=== PATIENT | male | born 1970 | race Caucasian/White ===

== ENCOUNTER 2025-02-15 17:59 | Inpatient (IN) | payer OTHER, SELFPAY ==
[2025-02-15] VITALS (27 sets, daily range): BP systolic 138–221; BP diastolic 66–116; BMI 38.6; BMI 37.4
--- NOTE | 2025-02-15 14:19 | ED.GENMED ---
Addendum entered and electronically signed by Dior Moore MD 02/15/25 17:36:
discussed with cardiology who recommended holding off on the heparin as likely type 2 NE. heparin discontinued. nursing immediately notified.
Original Note:
History of Present Illness
General
Chief Complaint: Chest Pain
Time Seen by Provider: 02/15/25 14:06
History of Present Illness
History of Present Illness:
Patient is a 54-year-old male with history of hypertension presenting to the emergency department with chest pain. Patient states for the past few days he has been having gradual chest pain that occurs after walking long distance. He has chest
pain as well as shortness of breath. Occasionally the pain will be from his back into his chest. Sometimes the pain will go down his arms. Occasionally he will have a sensory change but he is unable to describe it in his arms. He states when he
sits the pain resolves. He does note that his blood pressure has been elevated. He is on amlodipine metoprolol and spironolactone.
Phy Exam
Physical Exam
Physical Exam:
GENERAL: in no acute distress
HEENT: normocephalic, extraocular movements intact, moist oral mucosa
NECK: normal inspection
RESPIRATORY: no respiratory distress, clear to auscultation bilaterally
CARDIOVASCULAR: regular rate and rhythm, slightly diminished right sided radial pulse
ABDOMEN/: soft, non-distended, non-tender to palpation, no rebound or guarding
EXTREMITIES: non-tender, no edema/swelling
NEUROLOGIC: awake and alert, moves all extremities
SKIN: warm
Scores
Heart Score for Chest Pain Patients
STEMI patient?: No
History: Highly Suspicious
ECG: Nonspecific Repolarization
Age: >45 - <65 years
Risk Factors: 1 or 2 Risk Factors
Troponin: >1 - <3 x Normal Limit
Heart Score for Chest Pain Patients: 6
Heart Score Risk: 20.3% MACE over next 6 weeks
Course
Orders/Labs/Results
Orders:
Orders
02/15/25 13:26
EKG [Electrocardiogram (*1)] Urgent
Reason for Study: Chest Pain
EKG- Treatment ONCE
02/15/25 14:19
CT Angio Chest/Abd W/Wo Iv Contrast [CT Chest/abd Angio W/wo Iv Con] Urgent
Comment:
Reason For Exam: back pain chest pain, numbness down arm
EKG- Treatment ONCE
02/15/25 14:33
Complete Blood Count/With Diff Urgent
Comprehensive Metabolic Panel Urgent
Troponin I Urgent
02/15/25 15:25
Nitroglycerin 100 mg/250 ml [Nitroglycerin Premix] 100 mg in 250 ml IV NOW
Initial dose in mcg/min, then titrate:: 5
Titrate to keep:: Other
Titrate to keep other:: SBP goal 170
Titrate by mcg/min:: 5 mcg/min, may increase by 10 mcg/min if dose > 20 mcg/min
Frequency of titrations (minutes):: every 3-5 minutes
Maximum dose in mcg/min:: 200
Begin to taper infusion when:: Remained at goal for 2hrs
Taper by mcg/min:: 5 mcg/min
Frequency of taper (minutes) if patient maintains goal:: 30
Taper to off?: Yes
If infusion off & no longer maintaining goal:: Contact Provider
02/15/25 16:41
PTT Urgent
Comment: Obtain baseline before beginning heparin infusion if not already collected
Heparin 4,000 units IV NOW STA
Pharmacy Request to Place See Dose Instructions PO NOW STA
Discontinue all Active Warfarin orders?: Yes
Nursing to Place Non Medication Order As Directed
Physician Order: PTT 6 hours after initial start of Heparin infusion
02/15/25 16:45
Heparin INFUSION titrate rate - CONTINUOUS Heparin 29678 Units/250 ml 25,000 units in 250 ml IV PER PROTOCOL
Weight to be used for heparin protocol in kilograms (kg):: 118.6
Protocol:: Cardiac Tx/Acute Coronary
PTT Goal Range to be used:: PTT 73 to 111 seconds
Order type:: Initial
INITIAL Infusion Dose (UNITS/KG/hr) & then follow protocol:: 12 units/kg/hr
Infusion Dose in UNITS/hr & then follow protocol (UNITS/hr):: 1,000
INFUSION RATE in mL/hr & then follow protocol (mL/hr):: 10
PTT less than or equal to 64 seconds:: Increase rate by 200 units/hr (+ 2 mL/hr)
PTT 64.1 to 72.9 seconds:: Increase rate by 100 units/hr (+ 1 mL/hr)
PTT 73 to 111 seconds:: Target Range. No change in rate.
PTT 111.1 to 130.9 seconds:: Decrease rate by 100 units/hr (- 1 mL/hr)
PTT 131 to 199.9 seconds:: HOLD for 1 hr. Then decrease rate by 200 units/hr (- 2 mL/hr)
PTT greater than or equal to 200 seconds:: HOLD for 2 hrs & Notify Provider. Then decrease by 200 units/hr (-
2 mL/hr)
Lab follow-up:: Each change, PTT q6h until 2 consecutive are therapeutic. Then PTT
daily.
02/15/25 17:[address] See Dose Instructions IV DIRECTED
02/15/25 17:30
Electrocardiogram (*1) Urgent
Reason for Study: Chest Pain
Troponin I Urgent
Abnormal Lab Results
02/15/25
14:33
Absolute Neuts (auto) 6.6 H 10^3/uL
(1.4-6.5)
Absolute Monos (auto) 0.7 H 10^3/uL
(0.1-0.6)
Glucose 125 H mg/dl
(70-99)
Troponin I 0.063 H* ng/ml
02/15/25 14:33
02/15/25 14:33
Vital Signs
Initial and Last Documented VS:
Initial Vital Signs
Pulse Resp BP Pulse Ox
90 15 221/116 99
02/15/25 13:29 02/15/25 13:29 02/15/25 13:29 02/15/25 13:29
Last Documented Vital Signs
Pulse Resp BP Pulse Ox
72 16 181/91 97
02/15/25 15:30 02/15/25 15:30 02/15/25 15:21 02/15/25 14:20
MDM/Problems Addressed
Differential Diagnosis Includes:
Patient is a 54-year-old male with history of hypertension presenting to the emergency department with chest pain and shortness of breath that is exertional and resolves at rest. Occasionally he will have some sensory changes and pain into his
back. On arrival patient was significantly hypertensive but when he was sitting it was 194/88. He denies any chest pain currently. On exam he does have slightly diminished right-sided radial pulse and notes some asymmetry with sensation though
cannot pinpoint it. Differential consists of ACS versus dissection versus hypertensive emergency. Will check blood work including troponin x 2. Will obtain CT dissection protocol given the back pain and the vague sensory changes. EKG per my
interpretation normal sinus rhythm with ST flattening inferior and laterally
*Pulse Oximetry
SaO2: 97
Oxygen Mode of Delivery: Room air
Patient hypoxic: no
*Critical Care Note
Total Time (30-74mins, 75-104mins- exclusive of procedures): 35
comment:
Critical care statement: A total of 35 minutes of critical care time was provided for this patient. This includes management of unstable vital signs, evaluation of the patient at bedside, reviewing the patient's pertinent medical records, ordering
and reviewing studies, arranging urgent treatment with development of a management plan, evaluating patient's response to treatment, frequent reassessment, and discussion with consultants. This time was separate from time utilized to perform the
aforementioned documented procedures.
Update Note
Update Note:
Troponin is elevated. Patient's blood pressure remained elevated. He is chest pain-free. Will start nitroglycerin for hypertensive emergency with goal blood pressure of systolic 170 as that will be a 20% reduction from patient's initial blood
pressure of 220. Will hold off on heparin until after dissection scan.
CT scan per my interpretation with no dissection. Per the official read no thoracic or abdominal dissection. Will initiate heparin. Patient remains chest pain-free. Discussed with hospitalist who excepted patient to their service
ED Attending Note
-
Portions of this chart may have been created with voice recognition software.� Occasional wrong word or��sound alike� substitutions may have occurred due to the inherent limitations of voice recognition software.
Discharge Plan
Departure
Patient Disposition: Admit
Date of Disposition: 02/15/25
Time of Disposition: 16:42
Presentation/result/management discussed w/ accepting MD/DO: Hospitalist
Discharge Problem:
Hypertensive emergency, Non-ST elevation NE (NSTEMI)
Prescriptions:
No Action
amlodipine 5 mg tablet
5 mg PO DAILY
metoprolol succinate 25 mg tablet extended release 24 hr
25 mg PO DAILY
Patient Comments:
02/15/2025, filled on 02/15/2025 for 30-day supply, but unsure if pt. has started taking it yet.
spironolactone 50 mg tablet
50 mg PO DAILY
Referrals:
Juan F Freeman CRNP [Family Provider, General]
Interventions
Interventions:
*Risk Screen - Suicide Last Done: 02/15/25 13:29
*General Assessment Last Done: 02/15/25 13:29
*Neglect/Abuse Screening Last Done: 02/15/25 14:13
*ED- Fall Risk Assessment Last Done: 02/15/25 14:13
*ED COVID-19 Vaccine History Last Done: 02/15/25 13:29
ED- Cardiac Assessment Last Done: 02/15/25 13:43
Discharge Date and Time
Print Language: BHUTANESE
--- NOTE | 2025-02-15 14:29 | PHANOTE ---
02/15/2025, pt. states that he is taking 2 blood pressure medications; however, he does not know the name of any of them; Metoprolol 25 mg daily recently filled on 02/15/2025 for 30-day supply; Amlodipine 5 mg daily for 30-day supply filled on
02/12/2025, and Spironolactone 50 mg daily for 30-day supply filled on 02/12/2025; could not confirm with ecw or any other source.
[2025-02-15 14:54] LABS: ALT (SGPT) 47 U/L (0-50); AST (SGOT) 30 U/L (17-59); Albumin 4.7 g/dl (3.5-5.0); Alkaline Phosphatase 71 U/L (38-126); Blood Urea Nitrogen 19 mg/dl (9-20); Calcium 9.7 mg/dl (8.4-10.2); Carbon Dioxide 24 mmol/L (22-30); Chloride 105 mmol/L (98-107); Estimated Creatinine Clearance 107 ml/min; Glucose 125 mg/dl (70-99); Potassium 4.5 mmol/L (3.5-5.1); Sodium 137 mmol/L (135-145); Total Protein 8.1 g/dl (6.3-8.2); eGFR > 60.00
[2025-02-15 15:02] LABS: Hematocrit 43.5 % (39.0-52.0); Hemoglobin 14.9 g/dL (13.0-18.0); Mean Corp Hgb Conc. 34.3 g/dL (33.0-37.0); Mean Corpuscular Volume 85.3 fL (80.0-94.0); Nucleated Red Blood Cells % 0 % (-); Platelet Count 276 10^3/uL (130-400); Red Cell Dist. Width 13.2 % (11.5-14.5)
[2025-02-15 15:10] LABS: Troponin I 0.063 ng/ml
[2025-02-15] MEDS: NITROGLYCERIN PREMIX 250 IV (15:30)
[2025-02-15] MEDS: HEPARIN 25000 UNITS/250 ML IV (17:10)
[2025-02-15] MEDS: HEPARIN 4000 UNITS IV (17:10)
[2025-02-15 17:20] LABS: APTT 27.2 Sec (23.4-35.0)
--- NOTE | 2025-02-15 17:25 | HPS.HSE ---
Addendum entered and electronically signed by Aquilino Miguel MD 02/15/25 22:18:
Continued amlodipine, metoprolol and spironolactone. Patient made n.p.o. pastmidnight for catheterization tomorrow.
Original Note:
Family Physician
-
Family Physician: SOLIS Julio
Chief Complaint
-
chest pain
History of Present Illness
54-year-old male past medical history of hypertension, precancerous skin lesion status post resection, hyperlipidemia presenting with chest pain. Over the past few days he has had severe chest pain that radiates to his back as well as the neck and
arms at times. Resolved sensory changes in the arm symptoms. Pain resolves at rest or when he sits down. This is associated with shortness of breath.
He has had stress test before with consumer sales representative at [place] which was unremarkable.
He has a history of hypertension for several years and states his blood pressure has been 160s to 180s for years despite taking antihypertensive therapy. He is compliant with his medications.
Drinks alcohol occasionally. Denies smoking ever.
Multiple family members in his family with heart disease.
Medical History
Past Medical History
Past Medical History: Reports Other (hypertension, precancerous skin lesion status post resection, hyperlipidemia)
Past Surgical History: Reports None
Social History
Tobacco: Non-smoker
Alcohol: Occasional
Drug: None
Family History
Family History: CAD
Allergies / Home Medications
Allergies reflects when Allergies were last updated in [facility].
Home Medications with original date entered in [facility]
Allergy/Medication List:
Allergies
Allergy/AdvReac Type Severity Reaction Status Date / Time
No Known Allergies Allergy Unverified 02/15/25 13:32
Home Medications
amlodipine 5 mg tablet 5 mg PO DAILY 02/15/25
metoprolol succinate 25 mg tablet,extended release 24 hr 25 mg PO DAILY 02/15/25
spironolactone 50 mg tablet 50 mg PO DAILY 02/15/25
Review of Systems
-
Constitutional: Reports No Symptoms
EENT: Reports No Symptoms
Respiratory: Reports No Symptoms
Cardiac: Reports No Symptoms
Abdomen/GI: Reports No Symptoms
: Reports No Symptoms
Musculoskeletal: Reports No Symptoms
Skin: Reports No Symptoms
Neurological: Reports No Symptoms
Endocrine: Reports No Symptoms
Hematologic/Lymphatic: Reports No Symptoms
Psych: Reports No Symptoms
Physical Exam
Vital Signs
Vital Signs
Pulse Resp BP Pulse Ox
72 16 181/91 97
02/15/25 15:30 02/15/25 15:30 02/15/25 15:21 02/15/25 14:20
Physical Exam
General: Well Developed, Well Nourished and No Apparent Distress
HEENT: NormoCephalic, Moist mucous membranes and Atraumatic
Respiratory: Clear
Cardiac: S1/S2 and Regular Rhythm; No Murmur or Rub
GI: Soft, Non Tender, Non Distended and Normal Bowel Sounds; No Organomegaly
Rectal: Deferred by Provider
Musculoskeletal: No Clubbing, No Cyanosis and No Edema
Skin: No Rash
Neuro: Nonfocal/grossly intact
Laboratory Results
-
02/15/25 14:33
02/15/25 14:33
Laboratory Results
APTT Cancelled 02/15/25 17:12
Total Bilirubin 0.4 mg/dl (0.2-1.3) 02/15/25 14:33
AST 30 U/L (17-59) 02/15/25 14:33
ALT 47 U/L (0-50) 02/15/25 14:33
Alkaline Phosphatase 71 U/L (38-126) 02/15/25 14:33
Troponin I 0.063 ng/ml H* 02/15/25 14:33
Data Reviewed
-
Lab Data: Labs Reviewed by me
Old Records: Reviewed
Impression/Plan
-
IMPRESSION:
PLAN:
# Hypertensive emergency
# Stable angina/possible unstable angina
- EKG shows normal sinus rhythm, possible subtle ST depressions in leads V4 to V6
-CT angio chest abdomen pelvis negative
- Troponin of 0.063
- Trend troponins
-Aspirin started
- Hold off heparin drip for now as per cardiology
-Nitroglycerin drip started
-Check A1c and lipid panel
- Check echo
Hyperlipidemia
History of precancerous skin lesion
Full code
DVT prophylaxis�heparin drip
Regular diet
--- NOTE | 2025-02-15 17:30 | CON.CAR ---
Addendum entered and electronically signed by Antonio Rojas MD 02/15/25 17:46:
Patient seen and examined in collaboration with AERIAL TRAM OPERATOR; agree with below.
- 54-year-old male with uncontrolled hypertension admitted with hypertensive crisis; the patient has been having intermittent episodes of what appears to be angina with radiation down his arms.
- Troponin elevation may be secondary to acute nonischemic myocardial injury in the setting of hypertensive emergency versus an NSTEMI.
- Recommend deferring heparin for now as troponin is minimally elevated at 0.06; could lead to intracranial bleeding at this time, as blood pressure is uncontrolled (blood pressure 221/116 on admission).
- Full dose aspirin.
- Nitroglycerin drip.
- child development assistant.
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
- Echocardiogram tomorrow morning prior to catheterization.
- NPO after MN.
Original Note:
Consultation
Consultation Request
Date/Time Consultation Requested: 02/15/2025 17:15
Date/Time Consultation Performed: 02/15/2025 17:30
Requesting Provider: Dr. Moore
Performing Provider: SOLIS Mobley for Dr. Rojas
Reason for Consultation: Chest pain
Medical History
-
Chief Complaint: Chest pain
History of Present Illness:
Jose Cook is a 54-year-old male with hypertension and dyslipidemia who presented to the emergency department with a chief complaint of chest pain. He has midsternal anterior chest pain. It radiates into his epigastric area and up into his
neck. It was severe while he was at the [facility] in [place]. It always occurred while he was ambulating. It improved with rest. He denies associated symptoms of excessive diaphoresis, nausea, and vomiting. He has not had any chest pain at
rest. He also endorses associated shortness of breath. Again, worse with exertion and no symptoms at rest. He presented to the emergency department systolic blood pressure greater than 200 mmHg.
Past Medical History
Past Medical History: HTN
Past Surgical History: None
Social History
Tobacco: Non-Smoker
Alcohol: None
Drug: None
Personal:
Living: With Family
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
Family History
Family History: CAD (Father from [place] in his 50s.)
Allergies / Home Medications
Allergy/AdvReac Type Severity Reaction Status Date / Time
No Known Allergies Allergy Unverified 02/15/25 13:32
�Medication �Instructions �Recorded �Confirmed �Type
amlodipine 5 mg tablet 5 mg PO DAILY 02/15/25 History
metoprolol succinate 25 mg 25 mg PO DAILY 02/15/25 History
tablet,extended release 24 hr
spironolactone 50 mg tablet 50 mg PO DAILY 02/15/25 History
Review of Systems
-
History Source: Patient
All other systems: Negative unless noted
Constitutional: No Symptoms
EENT: No Symptoms
Respiratory: Trouble Breathing
Cardiac: Chest Pain
Abdomen/GI: No Symptoms
: No Symptoms
Musculoskeletal: No Symptoms
Skin: No Symptoms
Neurological: No Symptoms
Endocrine: No Symptoms
Hematologic/Lymphatic: No Symptoms
Physical Exam
Vital Signs
Pulse Resp BP Pulse Ox
72 16 181/91 97
02/15/25 15:30 02/15/25 15:30 02/15/25 15:21 02/15/25 14:20
Lab Results
02/15/25 14:33
02/15/25 14:33
Troponin I 0.063 ng/ml H* 02/15/25 14:33
Physical Exam
General: Well Developed, Well Nourished, No Apparent Distress and Comfortable
HEENT: Normocephalic, Anicteric and Moist Mucous Membranes
Respiratory: Clear and Non Labored Respirations
Cardiac: S1/S2 and Regular Rhythm; Negative Peripheral Edema
Breast: Deferred by me
GI: Soft, Non Tender, Non Distended and Normal Bowel Sounds
Rectal: Deferred by Provider
Genito-urinary: No Costovertebral Tender
Musculoskeletal: No Clubbing, No Cyanosis and No Edema
Skin: Warm and Dry
Neuro: AO x 3
Hematologic/Lymphatic: No Lymphadenopathy
Psych: Calm
Impression / Plan
-
I/P: 54M with hypertension and dyslipidemia who presented to the emergency department with a chief complaint of chest pain.
Outpatient minister assistant: None
Abnormal troponin, nonischemic myocardial injury versus NSTEMI
- ASA 324 mg given in ER
- Trend to peak with EKG, subtle ST depressions in leads V4�V6 & he has hypertensive emergency as well
- Echocardiogram tomorrow
Hypertensive emergency
- Start nitroglycerin intravenous, titrate per protocol
- Hold off on heparin given uncontrolled hypertension
- CTA negative for dissection
Dyspnea on exertion
- proBNP pending
- On exam, he does not appear to be in acute heart failure
Dyslipidemia, fasting lipid panel in a.m.
Hyperglycemia, HgbA1c pending
Data Reviewed
-
EKG: Report Reviewed by me
Radiology: Report Reviewed by me
Labs: Labs Reviewed by me
[2025-02-15] MEDS: LOW STRENGTH ASPIRIN 324 MG PO (17:57)
[2025-02-15 18:08] LABS: Troponin I 0.076 ng/ml
[2025-02-16] VITALS (10 sets, daily range): BP systolic 128–161; BP diastolic 70–97; BMI 37.1
[2025-02-16 00:08] LABS: Troponin I 0.070 ng/ml
[2025-02-16] MEDS: TYLENOL 650 MG PO (00:34)
[2025-02-16 05:29] LABS: Hematocrit 39.4 % (39.0-52.0); Hemoglobin 13.6 g/dL (13.0-18.0); Mean Corp Hgb Conc. 34.5 g/dL (33.0-37.0); Mean Corpuscular Volume 84.5 fL (80.0-94.0); Nucleated Red Blood Cells % 0 % (-); Platelet Count 234 10^3/uL (130-400); Red Cell Dist. Width 13.2 % (11.5-14.5)
[2025-02-16 05:59] LABS: ALT (SGPT) 43 U/L (0-50); AST (SGOT) 23 U/L (17-59); Albumin 4.1 g/dl (3.5-5.0); Alkaline Phosphatase 70 U/L (38-126); Blood Urea Nitrogen 19 mg/dl (9-20); Calcium 8.9 mg/dl (8.4-10.2); Carbon Dioxide 20 mmol/L (22-30); Chloride 107 mmol/L (98-107); Estimated Creatinine Clearance 105 ml/min; Glucose 144 mg/dl (70-99); Potassium 4.2 mmol/L (3.5-5.1); Sodium 136 mmol/L (135-145); Total Protein 6.8 g/dl (6.3-8.2); eGFR > 60.00
--- NOTE | 2025-02-16 06:44 | PTCARENOTE ---
Rec'd pt as admission from ED. Pt arrived with systolic BP in 180's and mild chest pain rating pain at a 1-2 on a scale of 1-10. Nitro gtt titrated according to order. Pt reported relief with titration and bp stable. Pt oriented to unit and
resting with call salazar in reach. See MAR and flowchart for full pt care and assessment.
[2025-02-16 07:55] LABS: Glycohemoglobin (HgbA1c) 6.1 % (4.0-5.6)
--- NOTE | 2025-02-16 08:27 | CARDSERVDEF ---
Echocardiogram with Definity completed after protocol screening completed. Allergies verified.
Patent IV site: _Right hand 20 G PC___
IV site flushed with 0.9% NaCl pre and post administration.
Diluted bolus method utilized to enhance visualization of ventricular more.
Total volume given: ___2_ mL
Patient tolerated all procedures well without complications.
[2025-02-16] MEDS: TOPROL XL 25 MG PO (09:30)
[2025-02-16] MEDS: ALDACTONE 50 MG PO (09:30)
[2025-02-16] MEDS: NORVASC 5 MG PO (09:30)
[2025-02-16] MEDS: LOW STRENGTH ASPIRIN 81 MG PO (09:30)
--- NOTE | 2025-02-16 10:52 | PTCARENOTE ---
Pt received from retail shift manager. Currently on NTG gtt but tapering off without any recurring chest pain. Pt complains of headaches and neck pain and he states he has BL calf tenderness without swelling. He states he mostly has his chest pain with
exertion but now that his BP is normal he is just having some mild residual pain. made aware. NSR on tele. Breath sounds clear BL, 97% on RA. Urinating without difficulty, BRP. Currently NPO for cardiac cath. Pt makes needs known. Call salazar
within reach.
--- NOTE | 2025-02-16 12:08 | CM ---
CM following for DC planning needs.
Met w/ patient at bedside to complete initial assessment.
Pt. reports that he resides w/ sig. other in a private home. He is functionally indep. at baseline w/ ADLs, mobility without the use of any assisted device. 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
Pt. uses [facility] on [address] for prescription needs.
Received consult for Advanced Directive. Pt. confirmed that he would like this information. Will provide to patient.
Antic. DC plan is for home, no needs.
Will cont. to follow closely.
--- NOTE | 2025-02-16 14:01 | W.PN.HOSP.TC ---
Today's Communication/Plan
-
Assessment / Plan
Assessment / Plan
General: No Apparent Distress, Comfortable and Conversant
HEENT: NormoCephalic, Moist mucous membranes, Atraumatic
Respiratory: Clear and Non Labored Respirations
Cardiac: S1/S2 and Regular Rhythm; No Rub or Gallop
GI: Soft, Non Tender, Non Distended and Normal Bowel Sounds
Musculoskeletal: No Edema, no deformity
Skin: Warm and dry
: NO Salguero
Neuro: Awake, Alert, Nonfocal/grossly intact
Psych: Calm and Intact Judgment/Insight
Mr. Cook is a 54-year-old male with medical history of uncontrolled hypertension with recurrent chest pain and reported negative outpatient cardiac workup who presented with chest pain with radiation to his bilateral arms, neck, and back. He
reports that his systolic blood pressure was around 220 on the morning prior to arrival. He reports that his usual SBP is between 116 and 190 despite adherence with his home regimen of amlodipine, metoprolol succinate, and spironolactone.
Troponins were elevated but stable. EKG showed nonspecific T wave abnormalities. He was admitted for further evaluation and management.
Hypertensive emergency:
- Blood pressure now better controlled on IV nitro drip, titrate off as able
- Continue home amlodipine 5 mg daily, metoprolol succinate 25 mg daily, and spironolactone 50 mg daily
- Troponins remain elevated but stable, given full-strength aspirin and will continue 81 mg daily, no indication for IV heparin at this point
- Echocardiogram unremarkable, left heart cath pending
- Cardiology following, continue telemetry monitoring
- Patient reports significant family cardiac history with his father dying of an MO at age 55
DVT prophylaxis: Subcu heparin
CODE STATUS: Full code
Total time spent on today's encounter was 40 minutes
Anticipated Discharge: 24 - 48 hours
Subjective/Interval History
-
Date of Service: February 16, 2025
Patient was seen and examined at bedside this morning. Echocardiogram unremarkable. Awaiting left heart cath later today.
Objective Data
-
Labs:
Laboratory Results
02/16/25
05:18
WBC 10.0
Hgb 13.6
Hct 39.4
Plt Count 234
Sodium 136
Potassium 4.2
Chloride 107
Carbon Dioxide 20 L
BUN 19
Creatinine 1.0
Glucose 144 H
Calcium 8.9
Total Bilirubin 0.3
AST 23
ALT 43
Alkaline Phosphatase 70
Vital Signs:
Vital Signs
Temp Pulse Resp BP Pulse Ox
98.4 F 64 20 136/79 98
02/16/25 11:28 02/16/25 05:04 02/16/25 11:28 02/16/25 09:30 02/16/25 11:28
Review of Systems
-
History Source: Patient
All other systems: Reviewed and negative
Physical Exam
-
General: No Apparent Distress
--- NOTE | 2025-02-16 15:14 | ITS.CL.PN ---
Parking Attendant - Procedure Note
Procedure
Procedure Note:
CARDIAC CATHETERIZATION REPORT
Date of Procedure: 03/15/2025
Referring: Dr. Antonio Rojas MD
Indication: NSTEMI
PROCEDURE(S)
1. left heart catheterization
2. coronary angiography
ACCESS: 6F right radial artery (closure: radial band, note: severe radial spasm and significant right brachiocephalic tortuosity, consider 5F radial artery access in future or groin access if intervention anticipated)
CATHETERS
1. 6F JR4
2. 6F JL3.5
MODERATE SEDATION: 30 minutes of moderate sedation was utilized. An independent medical editor was present to assist with and help manage the patient's level of consciousness and physiologic status.
HEMODYNAMIC DATA
LV 176/12 (EDP 31) mmHg
AO 165/85 (mean 119) mmHg
CORONARY ANGIOGRAPHY
Dominance: right
LM: large with minimal disease
LAD: large vessel giving rise to a single large branching diagonal. There is a severe focal 90% stenosis prior to the diagonal takeoff and a serial 70-80% stenosis distal to the diagonal takeoff. The diagonal itself has a 95% ostial stenosis. There
is a focal 90% stenosis in the proximal aspect of the inferior branch of the diagonal.
LCx: moderate caliber vessel giving rise to a moderate caliber high rising OM at OM1/ramus. There is a focal 80% stenosis in the proximal aspect of the ramus. The continuation of the circumflex gives rise to several small marginal branches with
diffuse disease.
RCA: large vessel giving rise to a large RPDA, large RPL1, and moderate caliber RPL2. There is diffuse mild disease.
RADIATION: dose 726 mGy; DAP 53 Gy*cm2; fluoroscopy time 8.7 min
CONCLUSIONS
1. Severely elevated LV filling pressure and no aortic stenosis on hemodynamic pullback.
2. Severe two-vessel coronary artery disease as described in a right dominant system.
RECOMMENDATIONS
1. Medical management of NSTEMI, likely type II in the setting of severe hypertension and severe underlying coronary artery disease given lack of clear culprit vessel and only mild troponin elevation. Initiate heparin for 48 hours and continue
aspirin status post load. Titrate beta-liborio for heart rate goal 60-70.
2. Evaluation for coronary artery bypass grafting given ACS presentation with high syntax score CAD in young patient. Revascularization should ideally involve grafts to the LAD, at least one of the 2 main branches of the diagonal, and the large
ramus/OM1. If the diagonal is not felt to be a target for bypass, hybrid revascularization with robotic CRUZ to LAD followed by PCI of the diagonal and ramus/OM1 could be considered.
3. Aggressive secondary prevention of coronary artery disease with high intensity statin for goal LDL less than 55
4. Check A1c and Lp(a)
Copy to: Juan F Freeman NP (PCP)
Signed: Ervin Shields MD, PhD
--- NOTE | 2025-02-16 15:51 | W.PN.CD ---
Today's Communication / Plan
-
cath with severe 2v disease
CABG eval
cont. med managment of NSTEMI
titrate oral meds for control of hypertension
Impression / Plan
-
I/P: 54M with hypertension and dyslipidemia who presented to the emergency department with a chief complaint of chest pain.
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
NSTEMI, likely Type II in setting of severe underlying disease and hypertension, though cannot rule out plaque rupture
- ASA 324 mg given in ER, but no heparin, heparin started after cath to be continued for 48 hours post symptom onset
- Echocardiogram with normal EF, normal valves
- cath with severe 2 vessel CAD as described
Hypertensive emergency, improved
- CTA negative for dissection
- cont. oral anti-hypertensive regimen
Dyspnea on exertion
- LVEDP elevated on cath, in setting of systemic hypertension
- proBNP normal
- 20 IV lasix x1
- treatment of hypertension as above
Dyslipidemia, fasting lipid panel in a.m.
Hyperglycemia, HgbA1c 6.1
TTE 02/16/2025
Left ventricular ejection fraction is>75%. Normal regional wall motion.
Normal right ventricular size and function.
No significant valvular disease.
Physical Exam
Vital Signs/Labs
Vital Signs
Temp Pulse Resp BP Pulse Ox
36.7 C 64 20 136/79 97
02/16/25 15:32 02/16/25 05:04 02/16/25 15:32 02/16/25 09:30 02/16/25 15:32
02/15/25 02/16/25 02/17/25
06:59 06:59 06:59
Actual Weight 114 kg
02/16/25 05:18
02/16/25 05:18
APTT Cancelled 02/15/25 23:10
02/15/25
17:34
Xef-W-Mkptxbatopb Pept 103
LAB Results
02/15/25 02/15/25 02/15/25
14:33 17:34 19:10
Troponin I 0.063 H* 0.076 H* Cancelled
02/15/25
23:18
Troponin I 0.070 H*
Physical Exam
Constitutional: Comfortable
Cardiovascular: Rhythm & rate is regular
Respiratory: Respiratory effort normal
Neuro/Psych: AO x 3
Data Reviewed
-
Date of Service: February 16, 2025
Medical Decision Making: Reviewed Test Results
EKG: Tracing Personally Visualized and interpreted
Echo: Tracing Personally Visualized and interpreted
Labs: Labs Reviewed by me
--- NOTE | 2025-02-16 16:05 | CONSULT.CT ---
Consultation
-
Date/Time Consultation Requested: 02/16/25
Date/Time Consultation Performed: 02/16/25
Requesting Provider: Cornelius
Performing Provider: Natty Ivory PA-C for Dr. Willy Rodriguez
Reason for Consultation: CABG eval
Patient History
Physicians
Family Physician: Juan F Freeman
Inpatient Vendor Analyst: Crystal
History of Present Illness
Patient is a 54-year-old male with past medical history of hypertension and significant family history with his father dying of MD at age 55. Patient presented to the ED with complaints of chest pressure and shortness of breath with limited
exertion that improves with rest. Upon admission to the ED blood pressure was noted to be 221/116. He was therefore admitted for hypertensive emergency with mild troponin leak, peak of 0.076. Echo was normal, hyperdynamic with ejection fraction
of greater than 75%. He proceeded to the [facility] today where he was noted to have significant LAD and circumflex system disease. CT surgery was consulted for evaluation for CABG.
Past Medical History
Hypertension
hyperlipidemia
Past Surgical History
orchiopexy as a child
Family History
Father: at Age (55 from [place])
Family Medical History: Early CAD
Social History
Alcohol: Occasional (2-3 beers/month)
Drug: None
Tobacco: Non-Smoker
Personal: Single (lives with longtime GF of 15 years)
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
Allergies
Allergy/AdvReac Type Severity Reaction Status Date / Time
No Known Allergies Allergy Unverified 02/15/25 13:32
Home Medications
�Medication �Instructions �Recorded �Confirmed �Type
amlodipine 5 mg tablet 5 mg PO DAILY 02/15/25 02/15/25 History
metoprolol succinate 25 mg 25 mg PO DAILY 02/15/25 02/15/25 History
tablet,extended release 24 hr
spironolactone 50 mg tablet 50 mg PO DAILY 02/15/25 02/15/25 History
Review of Systems
-
History Source: Patient
General: Reports No Symptoms
HEENT: Reports No Symptoms
Respiratory: Reports SOB and ODOM
Cardiac: Reports Chest Pain
Abdomen/GI: Reports No Symptoms
: Reports No Symptoms
Musculoskeletal: Reports No Symptoms
Skin: Reports No Symptoms
Neurological: Reports No Symptoms
Vascular: Reports No Symptoms
Physical Exam
Vital Signs
Temp 98.1 F 02/16/25 15:32
Temp route: Oral 02/16/25 15:32
Pulse 64 02/16/25 05:04
Rhythm: Normal sinus rhythm 02/16/25 09:30
Resp Rate 20 02/16/25 15:32
Blood pressure 136/79 02/16/25 09:30
Blood pressure extremity used: Left upper arm 02/16/25 15:32
Position: Lying 02/16/25 15:32
MAP (cuff-Naveed Monitor) 87 02/16/25 00:00
MAP 120 02/15/25 13:49
SaO2 97 02/16/25 15:32
Oxygen Mode of Delivery Room air 02/16/25 15:32
Can the patient verbally communicate their pain? Yes 02/16/25 01:34
Pain scale rating: Asleep 02/16/25 01:34
Actual Weight 114 kg 02/16/25 05:06
Body Mass Index (BMI) 37.1 02/16/25 05:06
Labs
02/16/25 05:18
02/16/25 05:18
APTT Cancelled 02/15/25 23:10
Hemoglobin A1c 6.1 % (4.0-5.6) H 02/15/25 17:34
Troponin I 0.070 ng/ml H* 02/15/25 23:18
Zvv-S-Prlqzsdhitp Pept 103 pg/ml 02/15/25 17:34
Exam
General: Well Developed, Well Nourished and No Apparent Distress
HEENT: Normocephalic and Anicteric
Neck: JVD; Negative Carotid Bruit
Respiratory: Clear; Negative Wheezes, Crackles or Rhonchi
Cardiac: Regular Rhythm; Negative Murmur, Rub or Gallop
GI: Soft, Non Tender and Non Distended
Skin: Warm and Dry
Neuro: CN X-XII Intact
Extremities: Negative Lower Level Edema
Lymph: No Lymphadenopathy
Psych: Calm
Assessment / Plan
-
hypertensive emergency
NSTEMI
2 vessel CAD
After reviewing films with Dr. Rodriguez, I had a long discussion with this patient regarding recommended coronary bypass grafting and expected postoperative course. While he is amenable to proceeding with surgical treatment of his coronary artery
disease, he is a self-employed primary income for him and his girlfriend. He is understandably very concerned about lack of income for presumably 2 to 3 months after sternotomy (truck and transport mechanic). I also discussed his case with his primary care
provider on the phone who asked about robotic or hybrid PCI options. This was discussed in further detail with Dr. Rodriguez who is agreeable to proceeding with robotic MIDCAB (CRUZ to LAD) with subsequent PCI of his remaining lesions. We will schedule
him for a robotic assisted MIDCAB on Thursday, February 20.
I reinforced with the patient the need for taking his blood pressure medications in addition to prescribed medications post CABG/PCI. I have ordered an ultrasound of his carotids to be done early Thursday morning. He had a CTA of the chest completed
yesterday that will be reviewed by Dr. Rodriguez for surgical planning. Continue medical management per cardiology.
Data Reviewed
-
[facility]: Image Personally Visualized and interpreted, Report Reviewed by me and Discussed with Physician
Echo: Report Reviewed by me
CT Scan: Report Reviewed by me
Labs: Labs Reviewed by me
[2025-02-16] MEDS: NSS 1000 IV (16:06)
[2025-02-16] MEDS: LASIX 20 MG IV (16:08)
[2025-02-16] MEDS: LIPITOR 40 MG PO (18:30)
[2025-02-16] MEDS: HEPARIN 25000 UNITS/250 ML IV (20:56)
[2025-02-16 21:25] LABS: INR 0.95; PT 13.1 Sec (11.4-14.6)
[2025-02-16 21:26] LABS: APTT 28.3 Sec (23.4-35.0)
--- NOTE | 2025-02-16 22:11 | W.PN.UPDATE ---
Update Note
Progress Note Update
STS RISK SCORE
Procedure Type:�Isolated CABG
Perioperative Outcome Estimate %
Operative Mortality 0.524%
Morbidity & Mortality 3.67%
Stroke 0.564%
Renal Failure 0.506%
Reoperation 1.33%
Prolonged Ventilation 1.91%
Deep Sternal Wound Infection 0.185%
Long Hospital Stay (>14 days) 1.29%
Short Hospital Stay (<6 days)* 73.2%
Clinical Summary
Planned Surgery: Isolated CABG, Urgent, First cardiovascular surgery
Demographics: 54 year old, male, 114kg, 175cm, BMI: 37.2 kg/m�
Lab Values: Creatinine: 1 mg/dL, Hematocrit: 39.4%, WBC Count: 10 10�/�L, Platelet Count: 932003 cells/�L
Substance Abuse: Never smoker, Alcohol use: <=1 drink/week
Risk Factors / Comorbidities: Hypertension, Family Hx of CAD
Cardiac Status: NYHA Class I, Ejection Fraction = 75%
Coronary Artery Disease: 2 vessels diseased, Proximal LAD Stenosis >=70%, Non-ST Elevation IN, IN: 1 to 7 Days
Valve Disease: Trivial/Trace MR, Trivial/Trace TR
[2025-02-17] VITALS (9 sets, daily range): BP systolic 142–180; BP diastolic 77–95; BMI 37.2
--- NOTE | 2025-02-17 00:12 | PTCARENOTE ---
Received patient at change of shift. SR on the monitor, HR in the 70s. R radial dressing CDI. Heparin started as per order, see documentation. No complaints from pt at this time, call salazar within reach.
[2025-02-17 03:32] LABS: Hematocrit 41.7 % (39.0-52.0); Hemoglobin 14.3 g/dL (13.0-18.0); Mean Corp Hgb Conc. 34.3 g/dL (33.0-37.0); Mean Corpuscular Volume 84.4 fL (80.0-94.0); Nucleated Red Blood Cells % 0 % (-); Platelet Count 263 10^3/uL (130-400); Red Cell Dist. Width 13.1 % (11.5-14.5)
[2025-02-17 03:44] LABS: APTT 34.3 Sec (23.4-35.0)
[2025-02-17 03:56] LABS: Blood Urea Nitrogen 19 mg/dl (9-20); Calcium 9.3 mg/dl (8.4-10.2); Carbon Dioxide 22 mmol/L (22-30); Chloride 107 mmol/L (98-107); Estimated Creatinine Clearance 105 ml/min; Glucose 149 mg/dl (70-99); HDL Cholesterol 42 mg/dl; Potassium 4.4 mmol/L (3.5-5.1); Sodium 136 mmol/L (135-145); eGFR > 60.00
[2025-02-17 04:34] LABS: LDL Cholesterol, Direct 134 mg/dl
[2025-02-17] MEDS: ALDACTONE 50 MG PO (08:35)
[2025-02-17] MEDS: NORVASC 5 MG PO (08:36)
[2025-02-17] MEDS: LOW STRENGTH ASPIRIN 81 MG PO (08:36)
[2025-02-17] MEDS: TOPROL XL 25 MG PO (08:37)
--- NOTE | 2025-02-17 09:35 | W.PN.CD ---
Today's Communication / Plan
-
continue heparin
IV lasix 20mg now
plan for cab Thursday
Impression / Plan
-
I/P: 54M with hypertension and dyslipidemia who presented to the emergency department with a chief complaint of chest pain.
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
NSTEMI, likely Type II in setting of severe underlying disease and hypertension, though cannot rule out plaque rupture
- ASA 324 mg given in ER, but no heparin, heparin started after cath to be continued for 48 hours post symptom onset
- Echocardiogram with normal EF, normal valves
- cath with severe 2 vessel CAD as described
Hypertensive emergency, improved
- CTA negative for dissection
- cont. oral anti-hypertensive regimen
-will add ACEI post CAB
HFpEF:
- LVEDP elevated on cath, in setting of systemic hypertension
- proBNP normal (but BMI 37)
- 20 IV lasix x1--now negative 700cc
-will give another dose of lasix now
- treatment of hypertension as above
-Additional GDMT post op
Dyslipidemia, fasting lipid panel in a.m.
Hyperglycemia, HgbA1c 6.1
Subjective:
He is feeling well, tenderness at his right scapulat
Data;
Cath 02/16/25:
LV 176/12 (EDP 31) mmHg
AO 165/85 (mean 119) mmHg
CORONARY ANGIOGRAPHY
Dominance: right
LM: large with minimal disease
LAD: large vessel giving rise to a single large branching diagonal. There is a severe focal 90% stenosis prior to the diagonal takeoff and a serial 70-80% stenosis distal to the diagonal takeoff. The diagonal itself has a 95% ostial stenosis. There
is a focal 90% stenosis in the proximal aspect of the inferior branch of the diagonal.
LCx: moderate caliber vessel giving rise to a moderate caliber high rising OM at OM1/ramus. There is a focal 80% stenosis in the proximal aspect of the ramus. The continuation of the circumflex gives rise to several small marginal branches with
diffuse disease.
RCA: large vessel giving rise to a large RPDA, large RPL1, and moderate caliber RPL2. There is diffuse mild disease.
CONCLUSIONS
1. Severely elevated LV filling pressure and no aortic stenosis on hemodynamic pullback.
2. Severe two-vessel coronary artery disease as described in a right dominant system.
TTE 02/16/2025
Left ventricular ejection fraction is>75%. Normal regional wall motion.
Normal right ventricular size and function.
No significant valvular disease.
Physical Exam
Vital Signs/Labs
Vital Signs
Temp Pulse Resp BP Pulse Ox
98.1 F 53 18 142/89 100
02/17/25 08:03 02/17/25 08:03 02/17/25 08:03 02/17/25 03:12 02/17/25 08:03
02/16/25 02/17/25 02/18/25
06:59 06:59 06:59
Actual Weight 251 lb 5.231 oz 251 lb 15.814 oz
02/17/25 03:20
02/17/25 03:20
PT 13.1 Sec (11.4-14.6) 02/16/25 20:55
INR 0.95 02/16/25 20:55
APTT 34.3 Sec (23.4-35.0) 02/17/25 03:20
Triglycerides 420 mg/dl (10-149) H 02/17/25 03:20
LDL Cholesterol, Calc mg/dl 02/17/25 03:20
VLDL Cholesterol, Calc mg/dl (0-30) 02/17/25 03:20
HDL Cholesterol 42 mg/dl 02/17/25 03:20
02/15/25
17:34
Upc-V-Gblohlsowqk Pept 103
LAB Results
02/15/25 02/15/25 02/15/25
14:33 17:34 19:10
Troponin I 0.063 H* 0.076 H* Cancelled
02/15/25
23:18
Troponin I 0.070 H*
Physical Exam
Constitutional: No acute distress
Cardiovascular: Rhythm & rate is regular, Pedal edema is absent, JVD pressure is normal, Systolic murmur absent and Diastolic murmur absent
Respiratory: Respiratory effort normal, Lungs clear to auscul., Wheeze Absent, Crackles Absent and Rhonchi Absent
Data Reviewed
-
Date of Service: February 17, 2025
Medical Decision Making: Review of Case with other Provider
EKG: Other (tele Sinus)
[2025-02-17] MEDS: LASIX 20 MG IV (10:26)
[2025-02-17 10:57] LABS: APTT 36.3 Sec (23.4-35.0)
--- NOTE | 2025-02-17 12:49 | PTCARENOTE ---
assessment stable as document. Pt denies SOB of CP. Complains of R scapula pain. Encouraged pt to be OOB
--- NOTE | 2025-02-17 14:26 | W.PN.HOSP.TC ---
Today's Communication/Plan
-
Assessment / Plan
Assessment / Plan
General: No Apparent Distress, Comfortable and Conversant
HEENT: NormoCephalic, Moist mucous membranes, Atraumatic
Respiratory: Clear and Non Labored Respirations
Cardiac: S1/S2 and Regular Rhythm; No Rub or Gallop
GI: Soft, Non Tender, Non Distended and Normal Bowel Sounds
Musculoskeletal: No Edema, no deformity
Skin: Warm and dry
: NO Salguero
Neuro: Awake, Alert, Nonfocal/grossly intact
Psych: Calm and Intact Judgment/Insight
Mr. Cook is a 54-year-old male with medical history of uncontrolled hypertension with recurrent chest pain and reported negative outpatient cardiac workup who presented with chest pain with radiation to his bilateral arms, neck, and back. He
reports that his systolic blood pressure was around 220 on the morning prior to arrival. He reports that his usual SBP is between 116 and 190 despite adherence with his home regimen of amlodipine, metoprolol succinate, and spironolactone.
Troponins were elevated but stable. EKG showed nonspecific T wave abnormalities. He was admitted for further evaluation and management.
NSTEMI:
- Multivessel disease involving proximal LAD and left circumflex identified on left heart cath 02/16
- Cardiothoracic surgery planning robotic MIDCAB 02/20
- Continue IV heparin drip
- Daily low-dose aspirin and high intensity statin
- Patient reports significant family cardiac history with his father dying of an ME at age 55
Hypertensive emergency:
- Blood pressure now better controlled, nitro drip discontinued
- Continue home amlodipine 5 mg daily, metoprolol succinate 25 mg daily, and spironolactone 50 mg daily
- Cardiology planning to add WANDA inhibitor after CAB
- IV hydralazine as needed for SBP greater than 170
HFpEF:
- Normal systolic function on echo this admission
- BNP normal but patient is significantly obese
- Continue beta-blockade with metoprolol succinate 25 mg p.o. daily
- IV Lasix given x 1
- Continue spironolactone
- Cardiology planning additional GDMT after CAB
DVT prophylaxis: IV heparin
CODE STATUS: Full code
Total time spent on today's encounter was 40 minutes
Anticipated Discharge: > 48 hours
Subjective/Interval History
-
Date of Service: February 17, 2025
Patient was seen and examined at bedside this morning. No longer experiencing chest pain. Is on IV heparin drip pending CABG. He is feeling some anxiety about being out of work for a prolonged period of time and not being able to pay his bills.
Objective Data
-
Labs:
Laboratory Results
02/17/25 02/17/25 02/17/25
03:20 10:39 17:30
WBC 9.6
Hgb 14.3
Hct 41.7
Plt Count 263
APTT 34.3 36.3 H Pending
Sodium 136
Potassium 4.4
Chloride 107
Carbon Dioxide 22
BUN 19
Creatinine 1.0
Glucose 149 H
Calcium 9.3
Vital Signs:
Vital Signs
Temp Pulse Resp BP Pulse Ox
98.2 F 63 18 180/89 96
02/17/25 12:02 02/17/25 12:08 02/17/25 12:02 02/17/25 12:08 02/17/25 12:02
I&O
02/16/25 02/17/25 02/18/25
06:59 06:59 06:59
Output Total 700 / 700
Balance -700 / -700
Review of Systems
-
History Source: Patient
All other systems: Reviewed and negative
Physical Exam
-
General: No Apparent Distress
[2025-02-17] MEDS: HEPARIN 25000 UNITS/250 ML IV (17:27)
[2025-02-17] MEDS: LIPITOR 40 MG PO (17:27)
[2025-02-17 18:57] LABS: APTT 32.3 Sec (23.4-35.0)
--- NOTE | 2025-02-17 21:47 | PTCARENOTE ---
Received patient at change of shift. SR on the monitor, HR in the 60s. Heparin running as per protocol, see documentation. No complaints from pt at this time, call salazar within reach.
[2025-02-18] VITALS (12 sets, daily range): BP systolic 142–193; BP diastolic 65–107; BMI 37.1
[2025-02-18 02:16] LABS: Hematocrit 43.1 % (39.0-52.0); Hemoglobin 15.2 g/dL (13.0-18.0); Mean Corp Hgb Conc. 35.3 g/dL (33.0-37.0); Mean Corpuscular Volume 83.0 fL (80.0-94.0); Platelet Count 241 10^3/uL (130-400); Red Cell Dist. Width 13.1 % (11.5-14.5)
[2025-02-18 02:30] LABS: APTT 47.1 Sec (23.4-35.0)
--- NOTE | 2025-02-18 05:26 | W.PN.CT ---
Today's Communication / Plan
-
Plan:
-Cont. current medical management per primary team
-Cont. current meds (ASA, Heparin gtt, Toprol XL, Lipitor, Spironolactone)
-Will d/c Norvasc in preparation for OR (hold Amlodipine x 48 hrs prior to OR)
-Will add hydralazine for BP control given occasional bradycardia
-Ongoing preop workup/medical optimization
-For robotic assisted MIDCAB on Thursday by Dr. Rodriguez
-Will cont. to closely monitor
Assessment / Plan
-
Assessment:
-Severe 2v CAD (involving LAD and Lcx)
-NSTEMI (trop 0.076), probable Type 2 NSTEMI
-Strong family hx CA (father passed @ age 55 from CA)
-LVEF > 75%
-Hypertensive emergency
-Hyperlipidemia
-Class 2 obesity (BMI 37.1)
-Prediabetes (hgb A1C 6.1)
-Bradycardia
-S/P Orchiopexy as a child
Discussed patient care with: Cardiology, Nursing, Respiratory Therapy, Pharmacy and Care Team
Subjective
-
Date of Service: February 18, 2025
No major issues overnight. Denies CP/SOB
Objective Data
-
Lab Results
02/18/25 02:09
PT 13.1 Sec (11.4-14.6) 02/16/25 20:55
INR 0.95 02/16/25 20:55
APTT 47.1 Sec (23.4-35.0) H 02/18/25 02:09
Vital Signs
Vital Signs
Temp Pulse Resp BP Pulse Ox
98.6 F 55 18 164/89 97
02/18/25 02:04 02/18/25 04:00 02/18/25 02:04 02/18/25 02:03 02/18/25 02:04
CT Intake/Output/Weight
02/17/25 02/17/25 02/18/25
06:59 18:59 06:59
Intake Total 650 / 650
Output Total 550 / 550
Balance 100 / 100
SaO2: 97 (RA)
Physical Exam
-
General: Awake, Oriented and AOx3
Cardiovascular: Regular rate & rhythm, No Murmurs, No Rub and No Gallop
Respiratory: Clear
Incision: Clean, Dry, Intact and Dressing Intact
Extremities: No Edema
Data Reviewed
-
Lab Results: Results Reviewed
Medications: Active Meds Reviewed
Chest X-Ray: Report Reviewed and Image Reviewed
ECG: Report Reviewed and Image Reviewed
[2025-02-18 06:47] LABS: Blood Urea Nitrogen 19 mg/dl (9-20); Calcium 9.4 mg/dl (8.4-10.2); Carbon Dioxide 23 mmol/L (22-30); Chloride 106 mmol/L (98-107); Estimated Creatinine Clearance 105 ml/min; Glucose 127 mg/dl (70-99); Magnesium 2.3 mg/dl (1.6-2.3); Potassium 4.7 mmol/L (3.5-5.1); Sodium 136 mmol/L (135-145); eGFR > 60.00
[2025-02-18] MEDS: TOPROL XL 25 MG PO (09:01)
[2025-02-18] MEDS: ALDACTONE 50 MG PO (09:01)
[2025-02-18] MEDS: APRESOLINE 10 MG PO ×2 (09:01→19:37)
[2025-02-18] MEDS: LOW STRENGTH ASPIRIN 81 MG PO (09:01)
[2025-02-18] MEDS: HEPARIN 25000 UNITS/250 ML IV ×2 (09:02→22:47)
--- NOTE | 2025-02-18 09:24 | PTCARENOTE ---
Assessment as documented. VSS and no complaints. Pt ambulating hallways. Provided education on Mid CABG procedure and post operative plan of care.
[2025-02-18 09:45] LABS: APTT 46.7 Sec (23.4-35.0)
--- NOTE | 2025-02-18 11:15 | W.PN.CD ---
Addendum entered and electronically signed by Antonio Rojas MD 02/18/25 13:53:
Patient seen and examined in collaboration with RAILROAD DISPATCHER; agree with below.
- Continue heparin drip.
- Blood pressure remains uncontrolled; will add Imdur 30 mg daily.
- Continue Toprol-XL, spironolactone, hydralazine.
- quality assurance monitor final.
- CABG planned for Thursday.
- Will continue to follow.
Original Note:
Today's Communication / Plan
-
Continue current medical therapy
Hydralazine added by CT surgery, norvas on hold
Impression / Plan
-
I/P: 54M with hypertension and dyslipidemia who presented to the emergency department with a chief complaint of chest pain.
Outpatient foot tender: None
NSTEMI, likely Type II in setting of severe underlying disease and hypertension, though cannot rule out plaque rupture
- ASA 324 mg given in ER, but no heparin, heparin started after cath to be continued for 48 hours post symptom onset
- Echocardiogram with normal EF, normal valves
- Cardiac cath with severe 2 vessel CAD as described - Robotic MIDCAB 02/20/[address] Rodriguez
Hypertensive emergency, improved
- CTA negative for dissection
- Cont. oral anti-hypertensive regimen
- Will add ACEI post CABG
HFpEF, acute on chronic
- LVEDP elevated on cath, in setting of systemic hypertension
- proBNP 103 (but BMI 37)
- S/p furosemide 20mg IV x 2 doses
- Additional GDMT post op, Case Mgmt to irby SGLT2i
Hypertriglyceridemia
-TG 420
Dyslipidemia
-LDL direct 134, goal < 55
-High intensity statin with rosuvastatin 40mg QPM
-Lp(a) pending
Fasting hyperglycemia, HgbA1c 6.1%
SUBJECTIVE:
He is feeling well without chest pain and shortness of breath.
DATA:
Cath 02/16/25:
LV 176/12 (EDP 31) mmHg
AO 165/85 (mean 119) mmHg
CORONARY ANGIOGRAPHY
Dominance: right
LM: large with minimal disease
LAD: large vessel giving rise to a single large branching diagonal. There is a severe focal 90% stenosis prior to the diagonal takeoff and a serial 70-80% stenosis distal to the diagonal takeoff. The diagonal itself has a 95% ostial stenosis. There
is a focal 90% stenosis in the proximal aspect of the inferior branch of the diagonal.
LCx: moderate caliber vessel giving rise to a moderate caliber high rising OM at OM1/ramus. There is a focal 80% stenosis in the proximal aspect of the ramus. The continuation of the circumflex gives rise to several small marginal branches with
diffuse disease.
RCA: large vessel giving rise to a large RPDA, large RPL1, and moderate caliber RPL2. There is diffuse mild disease.
CONCLUSIONS
1. Severely elevated LV filling pressure and no aortic stenosis on hemodynamic pullback.
2. Severe two-vessel coronary artery disease as described in a right dominant system.
TTE 02/16/2025
Left ventricular ejection fraction is>75%. Normal regional wall motion.
Normal right ventricular size and function.
No significant valvular disease.
Physical Exam
Vital Signs/Labs
Vital Signs
Temp Pulse Resp BP Pulse Ox
97.9 F 69 18 148/82 97
02/18/25 07:30 02/18/25 10:00 02/18/25 07:30 02/18/25 07:29 02/18/25 09:19
02/17/25 02/18/25 02/19/25
06:59 06:59 06:59
Actual Weight 114.3 kg 113.9 kg
02/18/25 02:09
02/18/25 05:43
PT 13.1 Sec (11.4-14.6) 02/16/25 20:55
INR 0.95 02/16/25 20:55
APTT Cancelled 02/18/25 12:15
Magnesium 2.3 mg/dl (1.6-2.3) 02/18/25 05:43
Triglycerides 420 mg/dl (10-149) H 02/17/25 03:20
LDL Cholesterol, Calc mg/dl 02/17/25 03:20
VLDL Cholesterol, Calc mg/dl (0-30) 02/17/25 03:20
HDL Cholesterol 42 mg/dl 02/17/25 03:20
02/15/25
17:34
Tke-C-Ucciwxgswrq Pept 103
LAB Results
02/15/25 02/15/25 02/15/25
14:33 17:34 19:10
Troponin I 0.063 H* 0.076 H* Cancelled
02/15/25
23:18
Troponin I 0.070 H*
Physical Exam
Constitutional: No acute distress and Comfortable
EENT: Anicteric and Moist mucous membranes
Cardiovascular: Rhythm & rate is regular and Pedal edema is absent
Respiratory: Respiratory effort normal and Lungs clear to auscul.
GI: Soft, Distention absent, Flat and Non tender
Other: Skin (warm )
Data Reviewed
-
Date of Service: February 18, 2025
Echo: Report Reviewed by me
Labs: Labs Reviewed by me
[2025-02-18] MEDS: APRESOLINE 10 MG IV ×2 (11:51→21:16)
[2025-02-18] MEDS: IMDUR (EXTENDED RELEASE) 30 MG PO (14:08)
--- NOTE | 2025-02-18 14:11 | PTCARENOTE ---
02/18/25 1400 Received patient sitting in chair. Pt is AAO x4, Pt denies any headache, dizziness, chest pain or shortness of breath. Pt on engine monitor in NSR. R radial site dressing C/D/I. IV Heparin infusing at 20 ml/hr. Next PTT due at 4pm. Pt's
lungs are clear on Room air at 97%. New medication reviewed with patient-Imdur. All questions were answered.
--- NOTE | 2025-02-18 14:13 | W.PN.HOSP.TC ---
Today's Communication/Plan
-
Assessment / Plan
Assessment / Plan
General: No Apparent Distress, Comfortable and Conversant
HEENT: NormoCephalic, Moist mucous membranes, Atraumatic
Respiratory: Clear and Non Labored Respirations
Cardiac: S1/S2 and Regular Rhythm; No Rub or Gallop
GI: Soft, Non Tender, Non Distended and Normal Bowel Sounds
Musculoskeletal: No Edema, no deformity
Skin: Warm and dry
: NO Salguero
Neuro: Awake, Alert, Nonfocal/grossly intact
Psych: Calm and Intact Judgment/Insight
Mr. Cook is a 54-year-old male with medical history of uncontrolled hypertension with recurrent chest pain and reported negative outpatient cardiac workup who presented with chest pain with radiation to his bilateral arms, neck, and back. He
reports that his systolic blood pressure was around 220 on the morning prior to arrival. He reports that his usual SBP is between 116 and 190 despite adherence with his home regimen of amlodipine, metoprolol succinate, and spironolactone.
Troponins were elevated but stable. EKG showed nonspecific T wave abnormalities. He was admitted for further evaluation and management.
NSTEMI:
- Multivessel disease involving proximal LAD and left circumflex identified on left heart cath 02/16
- Cardiothoracic surgery planning robotic MIDCAB 02/20
- Continue IV heparin drip
- Daily low-dose aspirin and high intensity statin
- Patient reports significant family cardiac history with his father dying of an MT at age 55
Hypertensive emergency:
- Blood pressure remains uncontrolled, Imdur 30 mg daily added today by cardiology
- Continue home metoprolol succinate 25 mg daily and spironolactone 50 mg daily, amlodipine
- Cardiology planning to add WANDA inhibitor after CAB
- IV hydralazine as needed for SBP greater than 170
HFpEF:
- Normal systolic function on echo this admission
- BNP normal but patient is significantly obese
- Continue beta-blockade with metoprolol succinate 25 mg p.o. daily
- IV Lasix given x 1
- Continue spironolactone
- Cardiology planning additional GDMT after CAB
DVT prophylaxis: IV heparin
CODE STATUS: Full code
Total time spent on today's encounter was 40 minutes
Anticipated Discharge: > 48 hours
Subjective/Interval History
-
Date of Service: February 18, 2025
Patient was seen and examined at bedside this morning. Remains on IV heparin drip and coronary artery bypass on 02/20.
Objective Data
-
Labs:
Laboratory Results
02/18/25 02/18/25 02/18/25
02:09 05:43 09:22
WBC 9.5
Hgb 15.2
Hct 43.1
Plt Count 241
APTT 47.1 H 46.7 H
Sodium 136
Potassium 4.7
Chloride 106
Carbon Dioxide 23
BUN 19
Creatinine 1.0
Glucose 127 H
Calcium 9.4
02/18/25 02/18/25
12:15 16:15
WBC
Hgb
Hct
Plt Count
APTT Cancelled Pending
Sodium
Potassium
Chloride
Carbon Dioxide
BUN
Creatinine
Glucose
Calcium
Vital Signs:
Vital Signs
Temp Pulse Resp BP Pulse Ox
98.0 F 73 18 179/107 97
02/18/25 11:39 02/18/25 13:00 02/18/25 11:39 02/18/25 11:58 02/18/25 11:39
I&O
02/17/25 02/18/25 02/19/25
06:59 06:59 06:59
Intake Total 650 / 650
Output Total 700 / 700 550 / 550
Balance -700 / -700 100 / 100
Review of Systems
-
History Source: Patient
All other systems: Reviewed and negative
Physical Exam
-
General: No Apparent Distress
[2025-02-18 16:28] LABS: APTT 46.3 Sec (23.4-35.0)
[2025-02-18] MEDS: CRESTOR 40 MG PO (17:19)
--- NOTE | 2025-02-18 21:48 | PTCARENOTE ---
Received patient at change of shift. SR on the monitor, HR in the 70s. Heparin running as per protocol, see documentation. BP 184/75 an hour after PM medications, PRN Hydralazine administered as per protocol, see MAR. No complaints from pt at this
time, call salazar within reach.
[2025-02-18 22:59] LABS: Lipoprotein a (Lp a) 17 mg/dL (<=29)
[2025-02-18 23:05] LABS: APTT 65.2 Sec (23.4-35.0)
[2025-02-19] VITALS (9 sets, daily range): BP systolic 152–173; BP diastolic 72–88; BMI 37.3
--- NOTE | 2025-02-19 05:46 | W.PN.CT ---
Today's Communication / Plan
-
Plan:
-Cont. current medical management per primary team
-Cont. current meds (ASA, Heparin gtt, Toprol XL, Lipitor, Spironolactone)
-Will d/c Norvasc in preparation for OR (hold Amlodipine x 48 hrs prior to OR)
-Will add hydralazine for BP control given occasional bradycardia
-Ongoing preop workup/medical optimization
-Will stop heparin gtt transmission operator to OR
-For robotic assisted MIDCAB Tomorrow by Dr. Rodriguez
-Will cont. to closely monitor
Assessment / Plan
-
Assessment:
-Severe 2v CAD (involving LAD and Lcx)
-NSTEMI (trop 0.076), probable Type 2 NSTEMI
-Strong family hx [place] (father passed @ age 55 from [place])
-LVEF > 75%
-Hypertensive emergency
-Hyperlipidemia
-Class 2 obesity (BMI 37.1)
-Prediabetes (hgb A1C 6.1)
-Bradycardia
-S/P Orchiopexy as a child
Discussed patient care with: Cardiology, Nursing, Respiratory Therapy, Pharmacy and Care Team
Subjective
-
Date of Service: February 19, 2025
No issues overnight. Denies CP/SOB
Objective Data
-
Lab Results
02/18/25 02:09
PT 13.1 Sec (11.4-14.6) 02/16/25 20:55
INR 0.95 02/16/25 20:55
APTT 65.2 Sec (23.4-35.0) H 02/18/25 22:49
Vital Signs
Vital Signs
Temp Pulse Resp BP Pulse Ox
97.8 F 68 18 152/75 98
02/19/25 04:50 02/19/25 05:03 02/19/25 04:50 02/19/25 05:03 02/19/25 04:50
SaO2: 98 (RA)
Physical Exam
-
General: Awake, Oriented and AOx3
Cardiovascular: Regular rate & rhythm and No Murmurs
Respiratory: Clear
Incision: Clean, Dry and Intact
Extremities: No Edema
Data Reviewed
-
Lab Results: Results Reviewed
Medications: Active Meds Reviewed
Chest X-Ray: Report Reviewed and Image Reviewed
ECG: Report Reviewed and Image Reviewed
[2025-02-19 05:58] LABS: APTT 84.3 Sec (23.4-35.0)
[2025-02-19 06:15] LABS: Blood Urea Nitrogen 26 mg/dl (9-20); Calcium 9.0 mg/dl (8.4-10.2); Carbon Dioxide 21 mmol/L (22-30); Chloride 108 mmol/L (98-107); Estimated Creatinine Clearance 105 ml/min; Glucose 126 mg/dl (70-99); Potassium 4.5 mmol/L (3.5-5.1); Sodium 135 mmol/L (135-145); eGFR > 60.00
[2025-02-19] MEDS: ALDACTONE 50 MG PO (08:29)
[2025-02-19] MEDS: IMDUR (EXTENDED RELEASE) 30 MG PO (08:29)
[2025-02-19] MEDS: TOPROL XL 25 MG PO (08:29)
[2025-02-19] MEDS: APRESOLINE 10 MG PO ×2 (08:29→20:10)
[2025-02-19] MEDS: LOW STRENGTH ASPIRIN 81 MG PO (08:30)
[2025-02-19] MEDS: HEPARIN 25000 UNITS/250 ML IV ×2 (09:15→21:14)
--- NOTE | 2025-02-19 11:50 | W.PN.CD ---
Today's Communication / Plan
-
- Continue heparin drip.
- Cardiac cath with severe 2 vessel CAD - Robotic MIDCAB 02/20/[address] Rodriguez with subsequent PCI on Thursday.
Impression / Plan
-
I/P: 54M with hypertension and dyslipidemia who presented to the emergency department with a chief complaint of chest pain.
Outpatient towerman: None
NSTEMI:
- Continue heparin drip.
- Echocardiogram with normal EF, normal valves
- Cardiac cath with severe 2 vessel CAD - Robotic MIDCAB 02/20/[address] Rodriguez with subsequent PCI on Thursday.
Per CT surgery: Plan is robotic assisted MIDCAB with possible intervention to both the LAD and the diagonal branches. Understands that this will be a hybrid approach meaning he will likely get a PCI intervention on Thursday and possibly discharge
on Thursday.
Hypertension:
- CTA negative for dissection
- Cont. oral anti-hypertensive regimen
- Will add ACEI post CABG
HFpEF, acute on chronic
- LVEDP elevated on cath, in setting of systemic hypertension
- proBNP 103 (but BMI 37)
- S/p furosemide 20mg IV x 2 doses
- Additional GDMT post op, Case Mgmt to irby SGLT2i
Hypertriglyceridemia
-TG 420
Dyslipidemia
-LDL direct 134, goal < 55
-Continue high intensity statin with rosuvastatin 40mg QPM.
Fasting hyperglycemia, HgbA1c 6.1%
SUBJECTIVE:
Mild chest pain overnight.
DATA:
Cath 02/16/25:
LV 176/12 (EDP 31) mmHg
AO 165/85 (mean 119) mmHg
CORONARY ANGIOGRAPHY
Dominance: right
LM: large with minimal disease
LAD: large vessel giving rise to a single large branching diagonal. There is a severe focal 90% stenosis prior to the diagonal takeoff and a serial 70-80% stenosis distal to the diagonal takeoff. The diagonal itself has a 95% ostial stenosis. There
is a focal 90% stenosis in the proximal aspect of the inferior branch of the diagonal.
LCx: moderate caliber vessel giving rise to a moderate caliber high rising OM at OM1/ramus. There is a focal 80% stenosis in the proximal aspect of the ramus. The continuation of the circumflex gives rise to several small marginal branches with
diffuse disease.
RCA: large vessel giving rise to a large RPDA, large RPL1, and moderate caliber RPL2. There is diffuse mild disease.
CONCLUSIONS
1. Severely elevated LV filling pressure and no aortic stenosis on hemodynamic pullback.
2. Severe two-vessel coronary artery disease as described in a right dominant system.
TTE 02/16/2025
Left ventricular ejection fraction is>75%. Normal regional wall motion.
Normal right ventricular size and function.
No significant valvular disease.
Physical Exam
Vital Signs/Labs
Vital Signs
Temp Pulse Resp BP Pulse Ox
97.2 F 75 20 171/83 97
02/19/25 07:28 02/19/25 08:29 02/19/25 07:28 02/19/25 08:29 02/19/25 07:28
02/18/25 02/19/25 02/20/25
06:59 06:59 06:59
Actual Weight 113.9 kg 114.4 kg
02/18/25 02:09
02/19/25 05:17
PT 13.1 Sec (11.4-14.6) 02/16/25 20:55
INR 0.95 02/16/25 20:55
APTT 84.3 Sec (23.4-35.0) H 02/19/25 05:17
Magnesium 2.3 mg/dl (1.6-2.3) 02/18/25 05:43
Triglycerides 420 mg/dl (10-149) H 02/17/25 03:20
LDL Cholesterol, Calc mg/dl 02/17/25 03:20
VLDL Cholesterol, Calc mg/dl (0-30) 02/17/25 03:20
HDL Cholesterol 42 mg/dl 02/17/25 03:20
02/15/25
17:34
Evd-A-Acytbvyfayp Pept 103
Physical Exam
Constitutional: No acute distress and Comfortable
EENT: Anicteric and Moist mucous membranes
Cardiovascular: Rhythm & rate is regular, Pedal edema is absent, Systolic murmur absent and S1S2 is normal
Respiratory: Respiratory effort normal and Lungs clear to auscul.
GI: Soft
Neuro/Psych: AO x 3
Other: Skin (Warm, dry, intact)
Data Reviewed
-
Date of Service: February 19, 2025
EKG: Tracing Personally Visualized and interpreted (Telemetry: Sinus rhythm)
Echo: Tracing Personally Visualized and interpreted (Normal LVEF)
Medical Tests (PFT, Pathology etc): Discussed with Nurse and Discussed with Patient
Labs: Labs Reviewed by me
[2025-02-19 11:56] LABS: APTT 98.4 Sec (23.4-35.0)
--- NOTE | 2025-02-19 12:24 | W.PN.HOSP.TC ---
Today's Communication/Plan
-
see plan
Assessment / Plan
Assessment / Plan
54-year-old male with medical history of uncontrolled hypertension with recurrent chest pain and reported negative outpatient cardiac workup who presented with chest pain with radiation to his bilateral arms, neck, and back. He reports that his
systolic blood pressure was around 220 on the morning prior to arrival. He reports that his usual SBP is between 116 and 190 despite adherence with his home regimen of amlodipine, metoprolol succinate, and spironolactone. Troponins were elevated
but stable. EKG showed nonspecific T wave abnormalities. He was admitted for further evaluation and management.
Gen: NAD, AAOx3.
Eyes: EOMI, PERRLA, no scleral icterus.
Neck: supple.
CV: RRR, +S1/S2, no m/r/g.
Resp: CTAB, no rales, wheezes, or rhonchi.
Abd: +BS, soft, NT, ND
Skin: No rashes.
Neuro: CN 2-12 intact, non-focal.
Psych: Normal mood and affect.
Echo: Left ventricular ejection fraction is>75%. Normal regional wall motion. Normal right ventricular size and function. No significant valvular disease.
Acute NSTEMI:
- Multivessel disease involving proximal LAD and left circumflex identified on left heart cath 02/16
- Cardiothoracic surgery planning robotic MIDCAB 02/20
- Continue IV heparin drip
- cont ASA/statin/BB
- Patient reports significant family cardiac history with his father dying of an [place] at age 55
Hypertensive emergency:
-cont Imdur/BB/aldactone/hydralazine
-Cardiology planning to add WANDA inhibitor after CAB
-IV hydralazine as needed for SBP greater than 160
Acute HFpEF:
- Normal systolic function on echo this admission
- BNP normal but patient is significantly obese
- Continue BB/Aldactone
- IV Lasix given x 1
- Cardiology planning additional GDMT after CAB
FULL/heparin gtt
Anticipated Discharge: > 48 hours
Subjective/Interval History
-
Date of Service: February 19, 2025
Denies CP/SOB.
Objective Data
-
Labs:
Laboratory Results
02/19/25 02/19/25
05:17 11:31
APTT 84.3 H 98.4 H
Sodium 135
Potassium 4.5
Chloride 108 H
Carbon Dioxide 21 L
BUN 26 H
Creatinine 1.0
Glucose 126 H
Calcium 9.0
Vital Signs:
Vital Signs
Temp Pulse Resp BP Pulse Ox
98 F 65 20 167/85 95
02/19/25 12:18 02/19/25 12:18 02/19/25 12:18 02/19/25 12:18 02/19/25 12:18
I&O
02/18/25 02/19/25 02/20/25
06:59 06:59 06:59
Intake Total 650 / 650
Output Total 550 / 550
Balance 100 / 100
--- NOTE | 2025-02-19 15:15 | PTCARENOTE ---
02/19/25 Received patient in bed from previous shift. IV Heparin infusing at 23ml/hr. PTT therapeutic @98.4. Will recheck in AM. Pt on hall monitor NSR. Pt with no complaints of chest pain, palpitations, or shortness of breath. Second tube of blood
drawn for type/cross. Pt walking in hallway. VSS. Pt on room air @95-97%. Pt NPO after MN for Mid-CABG in AM.
[2025-02-19] MEDS: CRESTOR 40 MG PO (17:14)
[2025-02-20] VITALS (14 sets, daily range): BP systolic 112–156; BP diastolic 63–95; BMI 36.9
--- NOTE | 2025-02-20 05:03 | PTCARENOTE ---
Pt NSR on monitor. Denies pain or SOB. Heparin gtt per protocol. NPO after midnight. CHG bath completed per protocol.
[2025-02-20 05:47] LABS: Hematocrit 41.5 % (39.0-52.0); Hemoglobin 14.3 g/dL (13.0-18.0); Mean Corp Hgb Conc. 34.5 g/dL (33.0-37.0); Mean Corpuscular Volume 84.5 fL (80.0-94.0); Platelet Count 245 10^3/uL (130-400); Red Cell Dist. Width 13.3 % (11.5-14.5)
[2025-02-20 05:54] LABS: APTT 105.5 Sec (23.4-35.0)
[2025-02-20 06:07] LABS: Blood Urea Nitrogen 18 mg/dl (9-20); Calcium 9.8 mg/dl (8.4-10.2); Carbon Dioxide 24 mmol/L (22-30); Chloride 105 mmol/L (98-107); Estimated Creatinine Clearance 105 ml/min; Glucose 125 mg/dl (70-99); Potassium 4.9 mmol/L (3.5-5.1); Sodium 137 mmol/L (135-145); eGFR > 60.00
[2025-02-20] MEDS: LOW STRENGTH ASPIRIN PO (07:50)
[2025-02-20] MEDS: ALDACTONE PO (07:50)
[2025-02-20] MEDS: IMDUR (EXTENDED RELEASE) PO (07:50)
[2025-02-20] MEDS: TOPROL XL PO (07:50)
[2025-02-20] MEDS: APRESOLINE PO (07:51)
--- NOTE | 2025-02-20 08:51 | W.CVOR.SURPR ---
CVOR Surgeon Immed Pre Op
-
I have examined this patient prior to performance of the scheduled procedure.
The patient's condition is unchanged from the time of the dictated/written History and
Physical and the patient is able to undergo the scheduled procedure.
RA MIDCAB
[2025-02-20] MEDS: PROTONIX 40 MG PO (09:16)
[2025-02-20] MEDS: MAGNESIUM OXIDE 500 MG PO (09:16)
[2025-02-20] MEDS: BACTROBAN 2% OINTMENT 1 APPLIC NASAL ×2 (09:16→20:54)
[2025-02-20] MEDS: HEPARIN 25000 UNITS/250 ML IV (09:43)
--- NOTE | 2025-02-20 11:41 | PTCARENOTE ---
~[id number]: Handoff report received from wendi RN. Pt Aox4, NSR 60s on tele, SBP 150s, RA satting 95% lungs clear throughout and diminsished in bases. Pt denies pain at this time. + pulses, no edema. All AM meds (other than pre-op meds) held
per Rita ELY. Heparin gtt infusing @ 2300units/hr, therapeutic at this time. Pt independent in room. All needs met at this time, call salazar within reach.
~[id number]: Patient stable at this time. No c/o CP, VSS. Around 1114, report called to [facility] 10, Heparin gtt turned off and disconnected. Patient taken to [facility] with Bita MAJOR. All belongings taken to 2262 in CVICU. Report given to Fredrick SUPERVISOR EDGING.
[2025-02-20 12:26] LABS: Urine Character Clear (Clear)
[2025-02-20 12:33] LABS: ACT+ - POC 129 Seconds (82-134)
[2025-02-20 12:45] LABS: Urine White Cell 0-2 /HPF (0-5)
--- NOTE | 2025-02-20 12:51 | CM ---
Pricing on Farxiga 10mg daily is $180 for a 30 day supply. Patient has commercial insurance and qualifies for a $0 copay card 30 day supply.
Pricing on Jardiance 10mg daily is $247 for a 30 day supply. Patient has a $500 deductible that needs to be met.
--- NOTE | 2025-02-20 12:56 | CM ---
Chart reviewed. Patient is in the OR today. 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 Plan is for the patient to go home with CT Transitional RN. CM to follow
[2025-02-20 14:09] LABS: B.E. - POC 1.0 mmol/L; Glucose - POC 116 mg/dl (70-99); HCO3 - POC 27 mmol/L (21-28); Hematocrit - POC 41 % PCV (42-52); Hemodilution- POC No; Hemoglobin Calculated - POC 14.1; Ionized Calcium - POC 1.24 mmol/L (1.15-1.33); Lactate - POC 0.98 mmol/L (0.36-0.75); O2 Saturation %Calculated-POC 99.7 % (94-98); PCO2 - POC 46 mmHg (35-48); PO2 - POC 197 mmHg (83-108); Potassium - POC 4.6 mmol/L (3.5-5.1); Sodium - POC 136 mmol/L (136-145); Specimen Type - POC Arterial; pH - POC 7.38 (7.35-7.45)
[2025-02-20 14:16] LABS: ACT+ - POC 407 Seconds (82-134)
[2025-02-20] MEDS: TYLENOL PO (15:21)
[2025-02-20] MEDS: NEURONTIN PO (15:21)
[2025-02-20] MEDS: PACERONE PO ×2 (15:21→22:32)
[2025-02-20 15:49] LABS: B.E. - POC -2.1 mmol/L; Glucose - POC 141 mg/dl (70-99); HCO3 - POC 26 mmol/L (21-28); Hematocrit - POC 45 % PCV (42-52); Hemodilution- POC No; Hemoglobin Calculated - POC 15.2; Ionized Calcium - POC 1.18 mmol/L (1.15-1.33); Lactate - POC 1.48 mmol/L (0.36-0.75); O2 Saturation %Calculated-POC 96.6 % (94-98); PCO2 - POC 56 mmHg (35-48); PO2 - POC 100 mmHg (83-108); Potassium - POC 5.6 mmol/L (3.5-5.1); Sodium - POC 138 mmol/L (136-145); Specimen Type - POC Arterial; pH - POC 7.27 (7.35-7.45)
[2025-02-20 15:53] LABS: ACT+ - POC 118 Seconds (82-134)
[2025-02-20 16:04] LABS: B.E. - POC -3.8 mmol/L; Glucose - POC 142 mg/dl (70-99); HCO3 - POC 23 mmol/L (21-28); Hematocrit - POC 38 % PCV (42-52); Hemodilution- POC No; Hemoglobin Calculated - POC 13.0; Ionized Calcium - POC 1.10 mmol/L (1.15-1.33); Lactate - POC 1.98 mmol/L (0.36-0.75); O2 Saturation %Calculated-POC 98.9 % (94-98); PCO2 - POC 50 mmHg (35-48); PO2 - POC 146 mmHg (83-108); Potassium - POC 4.9 mmol/L (3.5-5.1); Sodium - POC 135 mmol/L (136-145); Specimen Type - POC Arterial; pH - POC 7.28 (7.35-7.45)
--- NOTE | 2025-02-20 16:12 | W.PN.CT.SURG ---
CT Surgery Operative Note
-
CARDIAC SURGERY OPERATIVE REPORT
Preoperative Diagnosis: Coronary Artery Disease with proximal LAD involvement and NSTEMI
Postoperative Diagnosis: Same
Procedure(s) Performed:
1. Robotic assisted MIDCAB (double vessel bypass CRUZ in situ or diagonal sequential to LAD)
2. Robotic assisted harvest of internal mammary artery with anterolateral mini thoracotomy for CABG
3. Transesophageal echocardiography
4. Transonic Flowprobe assessment of CRUZ graft
5. Rib plating with a 6 hold plate
Date of Surgery: 02/20/25
Comorbidities:
1. Coronary artery disease involving the proximal LAD, NSTEMI
2. Hypertensive emergency
3. Morbidly obese with a BMI greater than 30
Attending Surgeon: Willy Rodriguez MD, MS
Assistants: Natty Ivory PA-C (present and necessary to senior office assistant, exchanging robotic instruments, retraction, suction, exposure, suture management, and wound closure under my direction) and AINSLEY Fernández
Anesthesiology: Mitchel Rivera MD and Steph Villegas CRNA
Scrub and Circulating RNs: Juany Saenz RN, Whitley Santana RN
Patrol Agent: Rianna Godoy CCP
Anesthesia: GETA
EBL: per perfusion records
Products: None
Indication(s) for Procedures: This is a 54-year-old male present with NSTEMI. 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 Given his disease pattern involving the proximal LAD with extension of disease into the
diagonal system and a focal 90% OM lesion, he was offered three-vessel revascularization using multi arterial grafts. Again he refused this and so we discussed amongst our team regarding a hybrid approach in the form of a robotic assisted MIDCAB
with CRUZ to LAD sequential to diagonal followed by PCI and stenting to the OM focal lesion.. The STS risk was discussed with the patient and the shared decision making was to pursue a single-vessel possible two-vessel bypass using his mammary
artery to his LAD and diagonal via a mini invasive approach. Plan will be to stent 24 hours after to the Circ system.
Conduit(s) Quality/Internal Diameter:
CRUZ -excellent, flow probe analysis, 30 cc/min, PI of 2.6 proximal to the diagonal vessel
CRUZ -excellent, flow probe assessment after the diagonal kdmc-ob-gtqr anastomosis yielded a mean flow of approximately 20 cc a minute with a pulse index of 2.8
Target(s) Quality/Internal Diameter:
LAD - large size accommodated 2.0 mm shunt
Diagonal -smaller size accommodated 1.5 mm shunt
Findings: His left ventricular ejection fraction preoperatively was 60% with no significant regional wall motion abnormalities. Following surgery his EF remained the same at 60% with no new regional wall motion abnormalities. No significant
valvular pathology was identified on intraoperative echo. The CRUZ was harvested in a skeletonized fashion. The mammary graft was verified with Doppler probe to have excellent signals. I did perform a sequential graft first to the diagonal as a
lcsh-fl-gmvq anastomosis with 7-0 Prolene followed by a qpgz-jw-mfvk anastomosis with the mid LAD with 7-0 Prolene. I then used a flow probe in order to assess the main LAD leading into both vessels followed by the sequential segment of mammary
artery between the diagonal and LAD. Both had excellent flows. In order to facilitate exposure, I did have to shingle his rib and then repaired it with a 6-hole plate.
Description of Procedure: The patient was taken to the operating room. Their identity and procedure to be performed were verified and they were positioned supine on the operating table. Induction via general anesthesia with endotracheal intubation
was performed and central venous access and arterial monitoring were inserted. A preoperative transesophageal echocardiogram was performed to assess cardiac function and valvular function. The patient was then prepped and draped from chin to feet in
a sterile fashion and positioned with left side bumped up and left arm down. A preoperative time-out was performed with all members of the team present. A Veress needle was used to enter the chest after stopping ventilation with the left lung
verified by anesthesia. We started with slow pressure insufflation which they tolerated. An 8 mm port was inserted in the fourth intercostal space laterally and a camera was inserted verifying no intrathoracic iatrogenic injuries. 2 additional
ports(8 mm and 8mm) were placed along the midaxillary line on either side of the camera port. Single 12 mm air seal port was used for the secretary administrative assistant to pass instruments and sutures. The robotic platform was then docked and targeted towards the
mammary. The mammary was harvested in a skeletonized fashion. A posterior pericardiotomy was created to facilitate drainage. Once sufficient length was obtained, an anterior pericardiotomy was created to identify the distal target. A vessel sealer
was used to take down the pericardial fat as well as performed the pericardiotomy. This was marked with a marker robotically. Full heparinization was given. 4 Hem-o-mehul clips were used to occlude and divide the mammary distally. The robot platform
was then undocked and the patient and a left anterior thoracotomy was created over the target vessel. Upon entering the thoracic cavity the mammary and LAD were visible. 5-0 Prolene sutures were then placed over the distal end of the mammary artery
and the mammary was cut in between the ligated portions. I then shingled the rib with a ribbon cutter. A thoracotomy retractor was placed to facilitate exposure and a pericardial well was created. The ACT was confirmed to be over 400.
The cardiac suction stabilizer was used to isolate the LAD target and the diagonal target to accommodate a nice lazy S lie. I then prepared the diagonal target and performed a small coronary tree artery and placed a 1.5 mm shunt to facilitate
exposure. The underbelly of the CRUZ graft was then incised and enlarged with Seth scissors. A poot-te-vosw anastomosis was performed 7-0 Prolene with a single repair stitch placed at the apex. The shunt was then removed and the bulldog was then
released confirming good flow. The 7-0 Prolene was then tied down using a micro core knot. I then reposition the cardiac stabilizer in order to expose the LAD which was intramyocardial. I dissected through the muscle and then Bovie the myocardium
in order to obtain hemostasis. A coronary arteriotomy was then created and a 2mm shunt was inserted to facilitate exposure and continued qagan tayagungin coronary perfusion. An distal jsdm-tb-dpyd anastomosis was created with a 7-0 prolene. The bulldog on
the mammary was removed which demonstrated excellent graft flow. The shunt was then remove and demonstrated excellent qagan tayagungin flow. I had difficulty with firing of the core knot and so it appeared that the threads were loose. I placed 2 small clips
in order to facilitate some tension. Repair ctugww-pv-gpinx sutures then placed towards the toe which was hand tied. Appropriate hemostasis was confirmed. The mammary graft was inspected and was free from kinking or twisting and flowprobe
evaluation demonstrated good flow and PI. A test dose of protamine was administered and the patient was monitored for any adverse reaction before resuming protamine. A 19F yumi drain into the pericardium and through the posterior pericardiotomy
into the left chest. The rib was then repaired with a 6 hole plate using 8 mm screws. Fascia was approximated with #1 vicryl suture. Local analgesia was administered to the surgical sites. The subcutaneous, dermis and epidermis were closed in
layers in a running fashion. The skin wound was cleansed and dressed.
All instrument, sponge, and needle counts were confirmed to be correct x 2 at the end of the operation. The patient was transferred to the cardiac intensive care unit extubated in critical but stable condition.
I, Dr. Willy Rodriguez, was present, scrubbed for, and performed all critical elements of this procedure.
Willy Rodriguez MD, MS
Cardiothoracic Surgeon
[facility]
This operative dictation was created using the [employer] dictation system. Please excuse any grammatical, typographical, or 'sound alike' errors
[2025-02-20 16:48] LABS: Glucose - Point of Care 170 mg/dl (70-99)
[2025-02-20 16:54] LABS: Hematocrit 40.0 % (39.0-52.0); Hemoglobin 13.8 g/dL (13.0-18.0); Platelet Count 235 10^3/uL (130-400)
[2025-02-20 16:55] LABS: B.E. -3.6 mmol/L; HCO3 23.1 mmol/L (21-28); O2 Saturation % 93.1 % (94-98); PCO2 47 mmHg (35-48); PO2 64 mmHg (83-108); Potassium 4.9 mMOL/L (3.5-5.1); Sodium 132 mMOL/L (136-145)
[2025-02-20] MEDS: PRECEDEX 100 IV (17:01)
[2025-02-20] MEDS: DILAUDID 0.5 MG IV ×2 (17:01→20:39)
--- NOTE | 2025-02-20 17:01 | W.PN.CD ---
Addendum entered and electronically signed by Mohsen Almonte MD 02/20/25 20:32:
I saw and examined the patient.
The CARE ADVOCATE's note was reviewed and I agree with the note.
Comment:
54-year-old man with hypertension and dyslipidemia who presented to the emergency department with chest pain, found to have severe two-vessel coronary artery disease, status post robotic assisted MIDCAB (double vessel bypass CRUZ in situ or diagonal
sequential to LAD), 02/20/[address] Rodriguez. Plan is for PCI tomorrow with Dr. Tucker. On exam, patient is in a lot of pain which, per RN, has been stable since he arrived to the CVICU. Discussed with CT surgery YVONNE Beckwith. Suspect due
to rib cutting during surgery.
Physical exam with well-approximated incision site, chest tube, regular rate and rhythm, no murmurs, clear lungs, no lower extremity edema
Postop ECG: NSR, lateral T wave inversions (unchanged from prior)
Continue routine postoperative care per CT surgery including pain control.
PCI tomorrow with Dr. Shields
Continue aspirin, statin, beta-liborio
Original Note:
Today's Communication / Plan
-
Close post-op monitoring and care per CT surgery/CVICU protocol. Plan is for PCI tomorrow.
Impression / Plan
-
I/P: 54M with hypertension and dyslipidemia who presented to the emergency department with a chief complaint of chest pain.
Outpatient duct maker: None
NSTEMI/CAD:
-Cardiac cath with severe 2 vessel CAD
-Echocardiogram with normal EF, normal valves
-s/p robotic assisted MIDCAB (double vessel bypass CRUZ in situ or diagonal sequential to LAD), 02/20/2025
-plan is for PCI tomorrow with Dr. Shields
-post-op CT and Salguero in place
-ASA, statin, BB
-on nicardipine drip
-on O2 by face mask
-post-op EKG and tele in SR
Hypertension:
-monitor post-op
-add ACEI post CABG
HFpEF, acute on chronic
- LVEDP elevated on cath, in setting of systemic hypertension
- proBNP 103 (but BMI 37)
- S/p furosemide 20mg IV x 2 doses
- Additional GDMT post op, Case Mgmt to irby SGLT2i
-monitor volume post-op
Hypertriglyceridemia
-TG 420
Dyslipidemia
-LDL direct 134, goal < 55
-Continue high intensity statin with rosuvastatin 40mg QPM.
Fasting hyperglycemia, HgbA1c 6.1%
DATA:
Cath 02/16/25:
LV 176/12 (EDP 31) mmHg
AO 165/85 (mean 119) mmHg
CORONARY ANGIOGRAPHY
Dominance: right
LM: large with minimal disease
LAD: large vessel giving rise to a single large branching diagonal. There is a severe focal 90% stenosis prior to the diagonal takeoff and a serial 70-80% stenosis distal to the diagonal takeoff. The diagonal itself has a 95% ostial stenosis. There
is a focal 90% stenosis in the proximal aspect of the inferior branch of the diagonal.
LCx: moderate caliber vessel giving rise to a moderate caliber high rising OM at OM1/ramus. There is a focal 80% stenosis in the proximal aspect of the ramus. The continuation of the circumflex gives rise to several small marginal branches with
diffuse disease.
RCA: large vessel giving rise to a large RPDA, large RPL1, and moderate caliber RPL2. There is diffuse mild disease.
CONCLUSIONS
1. Severely elevated LV filling pressure and no aortic stenosis on hemodynamic pullback.
2. Severe two-vessel coronary artery disease as described in a right dominant system.
TTE 02/16/2025
Left ventricular ejection fraction is>75%. Normal regional wall motion.
Normal right ventricular size and function.
No significant valvular disease.
Physical Exam
Vital Signs/Labs
Vital Signs
Temp Pulse Resp BP Pulse Ox
97.8 F 59 18 146/95 97
02/20/25 10:55 02/20/25 11:00 02/20/25 10:55 02/20/25 10:54 02/20/25 10:55
02/19/25 02/20/25 02/21/25
06:59 06:59 06:59
Actual Weight 114.4 kg 113.3 kg
PT 13.1 Sec (11.4-14.6) 02/16/25 20:55
INR 0.95 02/16/25 20:55
APTT 105.5 Sec (23.4-35.0) H 02/20/25 05:19
Magnesium 2.3 mg/dl (1.6-2.3) 02/18/25 05:43
Triglycerides 420 mg/dl (10-149) H 02/17/25 03:20
LDL Cholesterol, Calc mg/dl 02/17/25 03:20
VLDL Cholesterol, Calc mg/dl (0-30) 02/17/25 03:20
HDL Cholesterol 42 mg/dl 02/17/25 03:20
02/15/25
17:34
Diw-X-Kiboturcwwy Pept 103
Physical Exam
Constitutional: No acute distress
EENT: Anicteric
Cardiovascular: Rhythm & rate is regular
Respiratory: Respiratory effort normal and Lungs clear to auscul.
Other: Skin (left chest incision site is stable )
Data Reviewed
-
Date of Service: February 20, 2025
EKG: Tracing Personally Visualized and interpreted (SR 71 BPM, T wave abnormality- similar to pre-op)
Labs: Labs Reviewed by me
[2025-02-20 17:05] LABS: APTT 28.0 Sec (23.4-35.0); INR 1.12; PT 14.7 Sec (11.4-14.6)
[2025-02-20 17:08] LABS: Blood Urea Nitrogen 19 mg/dl (9-20); Estimated Creatinine Clearance 95 ml/min; Glucose 169 mg/dl (70-99); Magnesium 2.5 mg/dl (1.6-2.3)
[2025-02-20] MEDS: NSS 500 IV (17:16)
[2025-02-20] MEDS: CALCIUM GLUCONATE 100 IV (17:16)
[2025-02-20] MEDS: CRESTOR PO (17:17)
[2025-02-20] MEDS: ANCEF 10 IV ×2 (17:17)
--- NOTE | 2025-02-20 17:27 | PTCARENOTE ---
Patient received from CV[facility] at 1640; Drowsy, not responding appropriately to RN but arousable to tactile stimulation and pain; Forgetful and uncooperative; VSS; NSR on monitor; Distant heart sounds; +2 DP and radial pulses; Lungs diminished at bases
and rhonchi throughout; Nasal trumpet present in left nare; SpO2 86-93% on 15L simple mask - placed on Bipap 14 IPAP/6 EPAP 15L oxygen; Left pleural chest tube connected to -20 cm wall suction draining bloody drainage - no air leak, tidaling, or
crepitus noted; Umbilical hernia noted, hypoactive BS; Salguero catheter draining clear, yellow urine; Surgical sites intact; PIVx2 - #20 right hand and #20 LAC; RIJ Cordis with SLIC present, A-line present in left radial artery - all lines zeroed and
level; Insulin and cardene infusing - see nursing flowsheets for further details; Dilaudid 0.5 mg given accordingly for pain; iCal repleted x1; See nursing documentation for further information
--- NOTE | 2025-02-20 17:43 | CON.INTV ---
Consultation
Consultation Request
Date/Time Consultation Requested: 02/20
Date/Time Consultation Performed: 02/20
Reason for Consultation: Critical care
Medical History
-
History of Present Illness:
History obtained from the chart. Patient is able to follow commands but unable to provide history due to critical condition. 54-year-old male with history of recurrent chest pain, poorly controlled blood pressure, found to have coronary disease.
Patient was admitted 02/15/2025. Cardiac catheterization revealed severe two-vessel coronary disease with significant elevated filling pressures. Hospital stay was reviewed. Patient had NSTEMI, suspected type II along with treatment for
hypertensive emergency. CT angiogram negative for dissection. Patient was treated for heart failure. CT surgery was consulted. Patient underwent robotic assisted bypass surgery 02/20/2025 without complication. Patient was extubated
postoperatively.
Upon my arrival, patient somewhat agitated, did not tolerate BiPAP . Was transition to NIV. We are asked to help from critical care standpoint
.
PMH: Hypertension, hyperlipidemia, coronary disease with heart failure per catheterization. History of orchiopexy as a child
Past Medical History
Past Medical History: None (See above)
Past Surgical History: None (See above)
Social History
Tobacco: Non-smoker
Alcohol: Occasional (2-3 beers per month)
Personal: Single
Living: Alone (Lives with girlfriend)
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
Family History
Family History: Other (Father from heart attack age 55, additional details unclear)
Allergies / Home Medications
Allergies
Allergy/AdvReac Type Severity Reaction Status Date / Time
No Known Allergies Allergy Unverified 02/15/25 13:32
Home Medications
�Medication �Instructions �Recorded �Confirmed �Last Taken �Type
amlodipine 5 mg tablet 5 mg PO DAILY 02/15/25 02/15/25 02/15/25 08:00 History
metoprolol succinate 25 mg 25 mg PO DAILY 02/15/25 02/15/25 02/15/25 08:00 History
tablet,extended release 24 hr
spironolactone 50 mg tablet 50 mg PO DAILY 02/15/25 02/15/25 Unknown History
Review of Systems
-
Unable to Obtain full review of systems at this time due to: Acuity
Vitals / Labs / Diagnostic Testing
Vital Signs
Temp Pulse Resp BP Pulse Ox
98.2 F 72 17 121/70 95
02/20/25 17:00 02/20/25 17:05 02/20/25 17:05 02/20/25 17:00 02/20/25 17:41
Lab Data
02/20/25 16:48
Laboratory Results
02/20/25 02/20/25
05:19 16:48
PT 14.7 H
INR 1.12
APTT 105.5 H 28.0
pH 7.30 L
pCO2 47
pO2 64 L
HCO3 23.1
O2 Delivery Level
Diagnostic Testing:
Physical Exam
-
HEENT: Normocephalic and Other (Large neck)
Cardiovascular: S1/S2, Regular Rhythm, Murmur (n) and Other (Chest tube)
Respiratory: Wheeze (n), Rales (n), Rhonchi (Scattered coarse breath sounds), Non-Labored Respirations and Other (Witnessed apnea, occasional Chilo-Khoury)
GI: Soft and Non Distended (Obese)
Neurology: Awake (Lethargic but arousable, turns head, follows commands)
Skin: Good Color and Other (Arterial line)
General: Comfortable
Assessment
-
54-year-old male with history of hypertensive urgency, family history of cor disease, admitted with chest pain, abnormal catheterization noted, underwent robotic assisted bypass surgery 02/20/2025. Patient was extubated postoperatively, did not
tolerate BiPAP transition to NIV. We are asked to help from critical care standpoint 02/20/2025
S/p robotic assisted double vessel bypass
Robotic assisted Jones of internal mammary artery
Minithoracotomy for CABG
CAD, s/p NSTEMI
Admitted 02/15/2025
Heart failure
hypertensive emergency
Family history of heart disease
Strongly suspected sleep apnea
Plan/recommendations
At this time, patient remains critically ill but is extubated appears comfortable
Episodic apnea noted, Chilo-Khoury
Which improved with NIV 05/21
Ve 8-9L
Vt 450-750
Chest x-ray with bibasilar atelectasis
ABG 7.30/47/64
Moving forward
Continue with management per CT surgery
Target in a ventilation 8 to 9 L/min, tidal volume 500 to 700 cc
If needed, with increased IPAP/EPAP to 14/6. For now continue with 05/22
ABG as clinically indicated
Head of bed elevated, follow closely with sedation given risk for apnea
May consider high flow but given apnea and this may not be optimal
Reviewed with critical care nursing, respiratory care
Will follow
TCCT 32 min
[2025-02-20 18:07] LABS: Glucose - Point of Care 171 mg/dl (70-99)
[2025-02-20 18:10] LABS: B.E. 0.8 mmol/L; HCO3 26.6 mmol/L (21-28); O2 Saturation % 95.0 % (94-98); PCO2 46 mmHg (35-48); PO2 67 mmHg (83-108)
[2025-02-20] MEDS: LOW STRENGTH ASPIRIN 81 MG PO (18:45)
[2025-02-20] MEDS: FLEXERIL 5 MG PO (18:45)
[2025-02-20] MEDS: ROXICODONE 5 MG PO (18:45)
[2025-02-20 18:58] LABS: Glucose - Point of Care 165 mg/dl (70-99)
[2025-02-20 18:59] LABS: B.E. -1.3 mmol/L; HCO3 24.3 mmol/L (21-28); O2 Saturation % 96.2 % (94-98); PCO2 43 mmHg (35-48); PO2 70 mmHg (83-108)
--- NOTE | 2025-02-20 19:23 | PTCARENOTE ---
Precedex infusion started at 1700 due to RASS 2 - see nursing flowsheets for further details; BiPAP settings changed intermittently with ABG results as per GUERO Diallo; Patient no longer tolerant of BiPAP and demanding it be taken off at 1830 -
placed on 15L Midflow NC; Patient complaining of numbness in top of left hand - GUERO Teixeira notified and no further orders at this time; PRN Oxycodone and Flexeril given accordingly for pain; Oxygen weaned to 13L Midflow NC; Report given to Jerod
RN
--- NOTE | 2025-02-20 19:37 | PTCARENOTE ---
Patient received from RN @ 1900. Patient lying in bed w/ call salazar in reach. AOx3. Patient complains of pain and is anxious. See MAR for details. NSR on monitor BP 99/51 HR 68. heart audible but distant. Radial and pedal pulses present. No
edema noted. 1x left pleural chest tube set to -20 suction draining red fluid. No crepitus, tidaling, or air leaks noted. POX 90% 13L midflow. Lungs diminished in bases w/ rhonchi throughout. Bowel sounds hypoactive. Salguero draining clear
yellow urine. 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 RIJ cordis w/ slick and A-line patent, leveled, and zeroed. 2 left PIV patent and intact. Insulin, Precedex, and Cardene infusing per protocol. See
worklist for details.
[2025-02-20 20:09] LABS: Glucose - Point of Care 138 mg/dl (70-99)
--- NOTE | 2025-02-20 20:20 | PTCARENOTE ---
Cardene stopped and Nitro started @ [address] PA Ed. Patient complains of sever pain. See MAR for details.
[2025-02-20] MEDS: CARDENE 200 IV (20:23)
[2025-02-20] MEDS: SENOKOT-S PO (20:27)
[2025-02-20 21:10] LABS: Hematocrit 37.7 % (39.0-52.0); Hemoglobin 13.1 g/dL (13.0-18.0); Platelet Count 228 10^3/uL (130-400)
[2025-02-20 21:12] LABS: Glucose - Point of Care 156 mg/dl (70-99)
[2025-02-20] MEDS: TYLENOL 1000 MG PO (22:16)
[2025-02-20] MEDS: NEURONTIN 100 MG PO (22:16)
[2025-02-20] MEDS: LOPRESSOR 25 MG PO (22:21)
[2025-02-20] MEDS: DILAUDID 0.25 MG IV (22:22)
[2025-02-20] MEDS: ANCEF 5 IV (22:30)
--- NOTE | 2025-02-20 22:37 | PTCARENOTE ---
Patient screaming in pain. Patient states pain is 8/10. 0.[address] PA Ed. BP continues to be elevated. CT PA Ed notified. Nitro titrating and 25mg Lopressor ordered per CT PA Ed.
[2025-02-20 23:09] LABS: Glucose - Point of Care 138 mg/dl (70-99)
[2025-02-21] VITALS (29 sets, daily range): BP systolic 125–154; BP diastolic 51–128; BMI 37.1
[2025-02-21] MEDS: ROXICODONE 5 MG PO ×4 (00:02→20:01)
[2025-02-21] MEDS: LIDOCAINE 4% PATCH 1 PATCH TOPICAL (00:28)
--- NOTE | 2025-02-21 00:40 | PTCARENOTE ---
Patient reassessed. Patient complains of pain. See MAR for details. NSR on monitor BP 146/79 HR 87 POX 94% 15L midflow NC.
[2025-02-21 01:00] LABS: Glucose - Point of Care 144 mg/dl (70-99)
[2025-02-21] MEDS: DILAUDID 0.5 MG IV (02:00)
[2025-02-21 02:07] LABS: Glucose - Point of Care 147 mg/dl (70-99)
[2025-02-21 02:55] LABS: Hematocrit 35.6 % (39.0-52.0); Hemoglobin 12.6 g/dL (13.0-18.0); Mean Corp Hgb Conc. 35.4 g/dL (33.0-37.0); Mean Corpuscular Volume 83.4 fL (80.0-94.0); Platelet Count 238 10^3/uL (130-400); Red Cell Dist. Width 13.0 % (11.5-14.5)
[2025-02-21 03:06] LABS: Glucose - Point of Care 143 mg/dl (70-99)
[2025-02-21 03:26] LABS: Blood Urea Nitrogen 24 mg/dl (9-20); Calcium 8.9 mg/dl (8.4-10.2); Carbon Dioxide 23 mmol/L (22-30); Chloride 107 mmol/L (98-107); Estimated Creatinine Clearance 95 ml/min; Glucose 136 mg/dl (70-99); Magnesium 2.3 mg/dl (1.6-2.3); Potassium 4.8 mmol/L (3.5-5.1); Sodium 136 mmol/L (135-145); eGFR > 60.00
--- NOTE | 2025-02-21 03:45 | PTCARENOTE ---
Patient reassessed. NSR BP 138/70 HR 82 POX 92% 15L midflow nasal cannula. Labs drawn. Pain management. See MAR for details.
[2025-02-21 04:19] LABS: Glucose - Point of Care 167 mg/dl (70-99)
[2025-02-21 04:20] LABS: Glucose - Point of Care 122 mg/dl (70-99)
--- NOTE | 2025-02-21 04:36 | W.PN.CT ---
Today's Communication / Plan
-
Plan:
-No major issues overnight. Hemodynamically and neurologically intact
-On NTG gtt @ 120 to help maintain SBP </= 110 mmHg. On insulin gtt per protocol
-For PCI of RI/OM1 today, by Dr. Shields
-Will load with Plavix prior to PCI
-Cardiology to comment on mild ST elevation in Leads V2, V3 and aVL on AM EKG
-Cont. current meds (ASA, Plavix, Amiodarone, Toprol xl )
-Will monitor chest tube output for possible d/c today: L pleural 45/100
-D/C SLIC
-Will maintain left radial artery a-line for possible PCI access
-Keep [place] until after PCI. U/O since OR 515 mL
-D/C insulin gtt per protocol today, transfer to tele phase
-No temporary pw
-Encourage use of IS
-Wean off of O2
-OOB into chair/Ambulate
-D/C home in 1-2 days
Assessment / Plan
-
Assessment:
-S/P Robotic assisted MIDCAB (double vessel bypass CRUZ in situ or diagonal sequential to LAD)/Robotic assisted harvest of internal mammary artery with anterolateral mini thoracotomy for CABG/Rib plating with a 6 hold plate, by Dr. Rodriguez, 02/20/25,
pod#1
-Severe 2v CAD (involving LAD and Lcx)
-NSTEMI (trop 0.076), probable Type 2 NSTEMI
-Strong family hx CT (father passed @ age 55 [address])
-LVEF 60% per intraop ERIKA
-Hypertensive emergency
-Hyperlipidemia
-Class 2 obesity (BMI 37.1)
-Prediabetes (hgb A1C 6.1)
-Bradycardia
-S/P Orchiopexy as a child
-Acute postop blood loss/Anemia (stable without blood transfusion)
-Acute postop hypoxemia, requiring 15L midflow oxygenation
-Acute postop atelectasis
Discussed patient care with: Cardiology, Nursing, Respiratory Therapy, Pharmacy and Care Team
Subjective
Procedure
S/P Robotic assisted MIDCAB (double vessel bypass CRUZ in situ or diagonal sequential to LAD)/Robotic assisted harvest of internal mammary artery with anterolateral mini thoracotomy for CABG/Rib plating with a 6 hold plate, by Dr. Rodriguez, 02/20/25
-
Date of Service: February 21, 2025
Pt c/o incisional pain, otherwise feels well
Objective Data
-
Lab Results
02/21/25 02:48
02/21/25 02:48
PT 14.7 Sec (11.4-14.6) H 02/20/25 16:48
INR 1.12 02/20/25 16:48
APTT 28.0 Sec (23.4-35.0) 02/20/25 16:48
Vital Signs
Vital Signs
Temp Pulse Resp BP Pulse Ox
99.8 F 89 29 154/79 93
02/21/25 04:00 02/21/25 04:20 02/21/25 04:20 02/21/25 04:01 02/21/25 04:20
[address] Intake/Output/Weight
02/20/25 02/20/25 02/21/25
06:59 18:59 06:59
Intake Total 300 / 300 340.3 / 852.3 512.0 / 852.3
Output Total 190 / 615 425 / 615
Balance 300 / 300 150.3 / 237.3 87.0 / 237.3
SaO2: 93 (6L)
Physical Exam
-
General: Awake, Oriented and AOx3
Cardiovascular: Regular rate & rhythm, No Murmurs, No Rub and No Gallop
Respiratory: Decreased Breath Sounds
Sternum: Stable
Incision: Clean, Dry, Intact and Dressing Intact
Extremities: Other (+trace edema)
Data Reviewed
-
Lab Results: Results Reviewed
Medications: Active Meds Reviewed
Chest X-Ray: Report Reviewed and Image Reviewed
ECG: Report Reviewed and Image Reviewed
[2025-02-21] MEDS: DILAUDID 1 MG IV (04:50)
[2025-02-21 04:59] LABS: Glucose - Point of Care 139 mg/dl (70-99)
--- NOTE | 2025-02-21 05:00 | PTCARENOTE ---
Patient chest tube dressing leaking. CT PA Ed notified. Held pressure with gauze. CT PA Ed changed chest tube dressing at bedside. Gown and linens changed. Patient complains of pain 10/10. 1mg Dilaudid one time order per CT PA Ed.
[2025-02-21] MEDS: ANCEF 5 IV ×2 (06:00→15:28)
[2025-02-21] MEDS: TYLENOL 1000 MG PO ×2 (06:00→21:40)
--- NOTE | 2025-02-21 06:15 | PTCARENOTE ---
Sherman removed per CT PA Ed.
[2025-02-21 06:57] LABS: Glucose - Point of Care 116 mg/dl (70-99)
[2025-02-21] MEDS: NOVOLIN R INSULIN INFUSION 100 IV (07:03)
--- NOTE | 2025-02-21 07:42 | PTCARENOTE ---
assumed care of pt from previous shift RN, sinus rhythm on tele w HR 90's, BP 130-140/60's, + peripheral pulses, trace edema to bilateral lower extremities. Lungs diminished, pt refusing IS. +bs, NPO pre CCL. Salguero draining yellow. CT w minimal
amount of red drainage. Surgical sites stable. Right IJ cordis w KVO, nitro and cardene infusing. Insulin titrated per glycemic protocol. Plan of care reviewed w pt and questions encouraged.
--- NOTE | 2025-02-21 07:47 | W.PN.INTV ---
Today's Communication / Plan
Recommendations
Continue with supportive care
Positional therapy, suspected sleep apnea noted
Patient for cardiac cath, PCI later today
Discussed importance of sleep apnea workup as outpatient
Pulmonary follow-up information left in chart
Once transferred to telemetry, we will sign off. Please call with questions
Assessment
-
54-year-old male with history of hypertensive urgency, family history of cor disease, admitted with chest pain, abnormal catheterization noted, underwent robotic assisted bypass surgery 02/20/2025. Patient was extubated postoperatively, did not
tolerate BiPAP transition to NIV. We are asked to help from critical care standpoint 02/20/2025
S/p robotic assisted double vessel bypass
Robotic assisted [place] of internal mammary artery
Minithoracotomy for CABG
CAD, s/p NSTEMI
Admitted 02/15/2025
Heart failure
hypertensive emergency
Family history of heart disease
Strongly suspected sleep apnea
Plan/recommendations
At this time, patient appears comfortable, sitting in chair
Mild splinting on exam noted
Patient appears to be in good spirits, without complaints
Chest x-ray with bibasilar atelectasis
Moving forward
Continue with management per CT surgery
Cardiology correspondence reviewed. Plans for PCI from interventional cardiology noted
Head of bed elevated, follow closely with sedation given risk for apnea
Strongly suspected sleep apnea reviewed with patient
Reviewed risk and ramifications. Patient agreeable to follow-up in the near future
Remains on insulin drip till after dinner
Being followed by diabetic SIGN INSTALLER
Reviewed with critical care nursing
Updated at length at bedside
Follow-up information in sleep clinic left in chart
Once transferred to telemetry, we will sign off. Please call with questions
Subjective Dataa
Subjective Data
Date of Service:
Date of Service: February 21, 2025
Subjective:
Patient appears comfortable, mild splinting on exam. at bedside. Denies significant abdominal pain, nausea. Appears to be in good spirits
Objective Data
Data Reviewed
Vital Signs / I&O / Oxygen:
Vital Signs
Temp Pulse Resp BP Pulse Ox
100.1 F 90 26 145/77 89
02/21/25 06:57 02/21/25 07:00 02/21/25 07:00 02/21/25 07:00 02/21/25 07:00
Intake and Output
02/20/25 02/21/25 02/22/25
06:59 06:59 06:59
Intake Total 300 / 300 1293.8 / 1293.8
Output Total 725 / 725
Balance 300 / 300 568.8 / 568.8
SaO2 89
Nasal Cannula flow liters per 13
minute
Physical Exam
General: Comfortable and Other (IJ, large neck)
HEENT: Normocephalic and Anicteric
Cardiovascular: S1-S2, Regular Rhythm, Murmur (n) and Rub (n)
Respiratory: Wheeze (n), Crackles (n), Rhonchi (n), Non-Labored Respirations and Other (Mild splinting)
GI: Soft, Non Distended and Non Tender
Neurology: Awake, Alert and No Motor Deficits (Able to sit up without assistance)
Skin: Good Color, Cyanosis (n), Jaundice (n) and Rash (n)
Labs/Micro/Reports
Lab Data
02/21/25 02:48
02/21/25 02:48
Laboratory Results
02/20/25 02/20/25 02/20/25
16:48 18:03 18:54
PT 14.7 H
INR 1.12
APTT 28.0
pH 7.30 L 7.37 7.36
pCO2 47 46 43
pO2 64 L 67 L 70 L
HCO3 23.1 26.6 24.3
O2 Delivery Level
--- NOTE | 2025-02-21 08:11 | PN.DE.MGMTRT ---
Insulin Management
- -
02/21/2025 Diabetes Management Consult
Patient admitted 02/15 with chest pain; 02/16 cardiac cath; 02/20 robotic MIDCAB. PMH HTN, HLD, CAD, CHF. Prior to admission was taking no medications for diabetes. A1C 6.1%, cr 1.1, eGFR >60.
POD 1 s/p robotic MIDCAB. Patient is awake alert and oriented able to discuss glucose. at bedside. Patient is NPO today for cardiac cath.
Currently on glycemic protocol requiring 3.5 to 4 units of insulin per hour. Will continue current insulin infusion until after dinner. After dinner stop insulin infusion. Will start low corrective insulin in AM
Discussed with nurse.
Will follow.
Diabetes History
- -
Pre-Admission Diabetes Regimen
02/20/25 02/21/25
16:48 02:48
Creatinine 1.1 1.1
Lab Results
Hemoglobin A1c 6.1 % (4.0-5.6) H 02/15/25 17:34
Insulin Pump Settings
IP Diabetes Regimen
02/20/25 02/20/25 02/20/25
16:47 16:48 18:02
Glucose 169 H
POC Glucose 170 H 171 H
02/20/25 02/20/25 02/20/25
18:54 20:07 21:11
Glucose
POC Glucose 165 H 138 H 156 H
02/20/25 02/21/25 02/21/25
23:08 00:58 02:05
Glucose
POC Glucose 138 H 144 H 147 H
02/21/25 02/21/25 02/21/25
02:48 03:04 04:17
Glucose 136 H
POC Glucose 143 H 167 H
02/21/25 02/21/25 02/21/25
04:19 04:57 06:55
Glucose
POC Glucose 122 H 139 H 116 H
Meal type: Dinner
Patient Education
[2025-02-21] MEDS: LOW STRENGTH ASPIRIN 81 MG PO (08:27)
[2025-02-21] MEDS: SENOKOT-S 1 TABLET PO ×2 (08:27→20:01)
[2025-02-21] MEDS: NEURONTIN 100 MG PO ×3 (08:27→21:40)
[2025-02-21] MEDS: PROTONIX 40 MG PO (08:27)
[2025-02-21] MEDS: PACERONE 200 MG PO ×3 (08:27→21:40)
[2025-02-21] MEDS: TOPROL XL 25 MG PO (08:27)
[2025-02-21] MEDS: CARDIZEM 125 IV (08:27)
[2025-02-21] MEDS: LIDOCAINE 4% PATCH TOPICAL (08:28)
[2025-02-21] MEDS: BACTROBAN 2% OINTMENT 1 APPLIC NASAL ×2 (08:29→20:01)
--- NOTE | 2025-02-21 08:48 | PTCARENOTE ---
nitro and cardene discontinued per CT OTONIEL. Cardizem gtt initiated and titrated as ordered.
[2025-02-21 09:14] LABS: Glucose - Point of Care 128 mg/dl (70-99)
[2025-02-21 10:14] LABS: Glucose - Point of Care 132 mg/dl (70-99)
--- NOTE | 2025-02-21 10:30 | PTCARENOTE ---
pt assisted OOB to chair, tolerated well. Sinus rhythm maintained on tele, alexia leveled and zeroed, Cardizem titrated as ordered.
[2025-02-21 11:12] LABS: Glucose - Point of Care 117 mg/dl (70-99)
[2025-02-21] MEDS: REMOVE LIDOCAINE PATCH 1 PATCH REMOVE ×2 (11:53→20:03)
[2025-02-21] MEDS: ZESTRIL 5 MG PO (11:53)
[2025-02-21] MEDS: NSS IV (11:54)
[2025-02-21 11:57] LABS: Glucose - Point of Care 121 mg/dl (70-99)
[2025-02-21] MEDS: APRESOLINE 5 MG IV (12:15)
--- NOTE | 2025-02-21 12:25 | PTCARENOTE ---
CT OTONIEL made aware of elevated BP, now doses of lisinopril and hydralazine administered as ordered. Pt was also medicated for pain. Will monitor.
--- NOTE | 2025-02-21 12:41 | W.PN.ANS.POP ---
Anesthesia Post Operative
- Anesthesia Post Op Note
Vital Signs Stable-See Nursing Note: Yes
Airway Patent: Yes
Adequate Pain Control: Yes
Change in Mental Status: No
Current Postoperative Nausea & Vomiting: No
Anesthesia Complications: No
General Anesthetic Recall: No
Unplanned Admission: No
Post Op Hydration Adequate: Yes
[2025-02-21 13:08] LABS: Glucose - Point of Care 100 mg/dl (70-99)
--- NOTE | 2025-02-21 13:13 | PTCARENOTE ---
pt sent to [facility]
[2025-02-21] MEDS: TYLENOL PO (14:18)
[2025-02-21 14:24] LABS: Glucose - Point of Care 122 mg/dl (70-99)
[2025-02-21 14:41] LABS: ACT-LR - POC > 397 Seconds (116-155)
[2025-02-21 14:41] LABS: ACT-LR - POC 219 Seconds (116-155)
--- NOTE | 2025-02-21 15:15 | ITS.CL.PN ---
[facility] - Procedure Note
Procedure
Procedure Note:
CARDIAC CATHETERIZATION REPORT
Date of Procedure: 02/21/2025
Referring: Dr. Willy Rodriguez MD
Indication: Complete revascularization post NSTEMI
PROCEDURE(S)
1. left heart catheterization
2. coronary angiography
3. bypass graft angiography
4. IVUS ramus
5. PCI with MICHAEL to ramus
ACCESS: 6F right femoral artery (closure: Angioseal x1)
CATHETERS
1. 6F JR4
2. 6F ASHWINI
3. 6F EBU3.75 guide
MODERATE SEDATION: 60 minutes of moderate sedation was utilized. An independent medical services manager was present to assist with and help manage the patient's level of consciousness and physiologic status.
HEMODYNAMIC DATA
LV 125/11 (EDP 29) mmHg
AO 101/57 (mean 71) mmHg
BYPASS GRAFT ANGIOGRAPHY:
CRUZ-LAD: the CRUZ is taken as a pedicle and forms serial anastomoses with the inferior branch of the large diagonal and the mid-LAD. There is mild narrowing at the CRUZ-LAD anastamosis. There is TIMI3 flow to all distal branches and competitive
flow visualized on antegrade injection of the left main.
PCI with MICHAEL to Ramus
Heparin was given to achieve ACT greater than 300. The left main was engaged with an EBU 3.75 guide catheter and a Runthrough wire placed in the ramus. Initial lesion preparation was performed with a 2.5 mm balloon. IVUS was performed demonstrating
plaque with minimal calcification and a 3.0 mm distal reference vessel diameter and 3.25 mm proximal reference vessel diameter. A 3.0 x 30 mm [place] drug-eluting stent was deployed at 14 corry followed by post dilation of the mid-distal stent
with a 3.0 mm NC balloon to 16 corry and to 18 corry centrally followed by post dilation with a 3.25 mm NC balloon to 16 corry to the proximal stent edge. Final IVUS demonstrated full stent expansion and apposition without edge dissection. Final
angiography demonstrated an excellent result. The wire and guide were removed and the groin closed with an Angio-Seal.
RADIATION: dose 822 mGy; DAP 35.5 Gy*cm2; fluoroscopy time 10 min
CONCLUSIONS
1. Successful PCI to the ramus with a 3.0 x 30 mm [place] drug-eluting stent
2. Severely elevated LV filling pressure and no aortic stenosis
3. Patent sequential CRUZ to diagonal to LAD with mild anastomotic pinching at the LAD touchdown and brisk flow in all distal branches
RECOMMENDATIONS
1. Aggressive secondary prevention of coronary artery disease with high intensity statin to achieve LDL less than 55
2. DAPT with aspirin and Plavix for at least 1 year
Copy to: Juan F Freeman NP (PCP)
Signed: Ervin Shields MD, PhD
--- NOTE | 2025-02-21 15:24 | CM ---
Chart reviewed. 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 Plan is for the patient to go home with CT Transitional RN. CM to follow
[2025-02-21] MEDS: FERRLECIT 110 MG IV (15:28)
[2025-02-21] MEDS: DILAUDID 0.25 MG IV ×2 (15:35→20:41)
--- NOTE | 2025-02-21 16:22 | PTCARENOTE ---
d/c L pleural chest tube at bedside. uneventful. 93% 15L midflow. will continue to monitor.
--- NOTE | 2025-02-21 16:36 | W.PN.CD ---
Today's Communication / Plan
-
s/p sucessful PCI to ramas
cont. DAPT with ASA/Plavix
diuresis
start ACEi
Impression / Plan
-
I/P: 54M with hypertension and dyslipidemia who presented to the emergency department with a chief complaint of chest pain.
Outpatient light adjuster: None
NSTEMI/CAD:
-Cardiac cath with severe 2 vessel CAD
-Echocardiogram with normal EF, normal valves
-s/p robotic assisted MIDCAB (double vessel bypass CRUZ in situ or diagonal sequential to LAD), 02/20/2025
-s/p PCI to ramus with 3.0x30 mm MICHAEL, Plavix loaded in the room
-cont. ASA/Plavix, statin, BB
-post-op EKG and tele in SR
Hypertension:
-monitor post-op
-add ACEI post CABG
HFpEF, acute on chronic
- LVEDP elevated on initial diagnostic cath and again today during PCI
- recommend IV diuresis today and PRN
- proBNP 103 (but BMI 37)
- S/p furosemide 20mg IV x 2 doses
- Additional GDMT post op, Case Mgmt to irby SGLT2i
Hypertriglyceridemia
-TG 420
Dyslipidemia
-LDL direct 134, goal < 55
-Continue high intensity statin with rosuvastatin 40mg QPM.
Fasting hyperglycemia, HgbA1c 6.1%
DATA:
Cath 02/16/25:
LV 176/12 (EDP 31) mmHg
AO 165/85 (mean 119) mmHg
CORONARY ANGIOGRAPHY
Dominance: right
LM: large with minimal disease
LAD: large vessel giving rise to a single large branching diagonal. There is a severe focal 90% stenosis prior to the diagonal takeoff and a serial 70-80% stenosis distal to the diagonal takeoff. The diagonal itself has a 95% ostial stenosis. There
is a focal 90% stenosis in the proximal aspect of the inferior branch of the diagonal.
LCx: moderate caliber vessel giving rise to a moderate caliber high rising OM at OM1/ramus. There is a focal 80% stenosis in the proximal aspect of the ramus. The continuation of the circumflex gives rise to several small marginal branches with
diffuse disease.
RCA: large vessel giving rise to a large RPDA, large RPL1, and moderate caliber RPL2. There is diffuse mild disease.
CONCLUSIONS
1. Severely elevated LV filling pressure and no aortic stenosis on hemodynamic pullback.
2. Severe two-vessel coronary artery disease as described in a right dominant system.
TTE 02/16/2025
Left ventricular ejection fraction is>75%. Normal regional wall motion.
Normal right ventricular size and function.
No significant valvular disease.
Physical Exam
Vital Signs/Labs
Vital Signs
Temp Pulse Resp BP Pulse Ox
37.2 C 69 21 114/72 93
02/21/25 15:00 02/21/25 16:00 02/21/25 16:00 02/21/25 15:29 02/21/25 16:00
02/20/25 02/21/25 02/22/25
06:59 06:59 06:59
Actual Weight 113.3 kg 114 kg
02/21/25 02:48
02/21/25 02:48
PT 14.7 Sec (11.4-14.6) H 02/20/25 16:48
INR 1.12 02/20/25 16:48
APTT 28.0 Sec (23.4-35.0) 02/20/25 16:48
Magnesium 2.3 mg/dl (1.6-2.3) 02/21/25 02:48
Triglycerides 420 mg/dl (10-149) H 02/17/25 03:20
LDL Cholesterol, Calc mg/dl 02/17/25 03:20
VLDL Cholesterol, Calc mg/dl (0-30) 02/17/25 03:20
HDL Cholesterol 42 mg/dl 02/17/25 03:20
02/15/25
17:34
Xqf-V-Gqaoncshone Pept 103
Physical Exam
Constitutional: Comfortable
Cardiovascular: Rhythm & rate is regular
Respiratory: Respiratory effort normal
Neuro/Psych: AO x 3
Data Reviewed
-
Date of Service: February 21, 2025
Medical Decision Making: Reviewed Test Results
Labs: Labs Reviewed by me
[2025-02-21] MEDS: TORADOL 15 MG IV (16:37)
[2025-02-21] MEDS: CRESTOR 40 MG PO (17:16)
[2025-02-21] MEDS: LASIX 40 MG IV (17:17)
--- NOTE | 2025-02-21 20:00 | PTCARENOTE ---
Assumed care of the patient at 1900. Patient in bed, AOx3, ESL, BUR[place]A, c/o moderate pain. SR to SB on CM, heart tones audible, +2 nonpitting edema of the lower extremities, pulses weakly palpable throughout. Lungs dim at the bases, on 15L midflow NC,
IS strongly encouraged, patient education provided regarding removing cannula from nostrils x2, patient indicated understanding; intermittent cough, breathing tachypneic, unlabored, but shallow. Ate 75% of his dinner, no n/v, abdomen obese SNT.
Salguero catheter in place draining clear yellow urine. All surgical sites intact, CT dressing changed d/t being saturated. OOB to chair to eat, CHG bath performed and patient placed back into bed after eating dinner. PIV x2, RIJ Cordis, insulin gtt
d/c'ed at 2000 per order. HS BG 132. Patient updated on POC, in agreement, assessment of needs ongoing.
[2025-02-21] MEDS: COREG 6.25 MG PO (20:04)
[2025-02-21 20:40] LABS: Glucose - Point of Care 109 mg/dl (70-99)
[2025-02-21 20:40] LABS: Glucose - Point of Care 137 mg/dl (70-99)
[2025-02-21 20:40] LABS: Glucose - Point of Care 132 mg/dl (70-99)
[2025-02-22] VITALS (10 sets, daily range): BP systolic 99–169; BP diastolic 52–87; PULSE 94; O2SAT 92–95; BMI 37.4
--- NOTE | 2025-02-22 00:30 | PTCARENOTE ---
Patient sleeping between care, BP controlled at this time, denies pain, VSS. Assessment of needs ongoing.
--- NOTE | 2025-02-22 04:00 | PTCARENOTE ---
Sleeping well, pain is 3/10 per patient, BP 99/62, CVPA aware
[2025-02-22 04:48] LABS: Hematocrit 34.0 % (39.0-52.0); Hemoglobin 11.5 g/dL (13.0-18.0); Mean Corp Hgb Conc. 33.8 g/dL (33.0-37.0); Mean Corpuscular Volume 86.1 fL (80.0-94.0); Platelet Count 221 10^3/uL (130-400); Red Cell Dist. Width 13.9 % (11.5-14.5)
[2025-02-22] MEDS: TYLENOL 1000 MG PO ×3 (05:04→22:01)
[2025-02-22] MEDS: ROXICODONE 5 MG PO ×3 (05:05→16:57)
[2025-02-22 05:19] LABS: Blood Urea Nitrogen 41 mg/dl (9-20); Calcium 8.7 mg/dl (8.4-10.2); Carbon Dioxide 23 mmol/L (22-30); Chloride 105 mmol/L (98-107); Estimated Creatinine Clearance 58 ml/min; Glucose 141 mg/dl (70-99); Magnesium 2.6 mg/dl (1.6-2.3); Potassium 5.1 mmol/L (3.5-5.1); Sodium 134 mmol/L (135-145); eGFR 44.18
--- NOTE | 2025-02-22 05:19 | W.PN.CT ---
Documented by User: Jalen Beckwith PA-C 02/22/25 07:21
Today's Communication / Plan
-
Plan:
-No major issues overnight. Hemodynamically and neurologically intact
-Underwent successful PCI of his Ramus yesterday
-Has been hypertensive postop, responding to Coreg and Lisinopril
-ST elevation in Leads V2, V3 and aVL is improved
-Cont. current meds (ASA, Plavix, Amiodarone, Coreg)
-D/C cordis
-F/U 2-view cxr
-Creatinine 1.8 this AM, monitor. Was 1.1 yesterday and 1.0 preop. May be secondary to contrast from cath. May benefit from IV fluids, avoid diuresis
-No temporary pw
-Encourage use of IS
-Weaned 02 from 15L to 3L overnight
-OOB into chair/Ambulate
-D/C home likely tomorrow
Assessment / Plan
-
Assessment:
-S/P Robotic assisted MIDCAB (double vessel bypass CRUZ in situ or diagonal sequential to LAD)/Robotic assisted harvest of internal mammary artery with anterolateral mini thoracotomy for CABG/Rib plating with a 6 hold plate, by Dr. Rodriguez, 02/20/25,
pod#2
-S/P Successful PCI to the ramus with a 3.0 x 30 mm [place] drug-eluting stent, by Dr. Shields, 02/21/25
-Severe 2v CAD (involving LAD and Lcx)
-NSTEMI (trop 0.076), probable Type 2 NSTEMI
-Strong family hx MD (father passed @ age 55 from MD)
-LVEF 60% per intraop ERIKA
-Hypertensive emergency
-Hyperlipidemia
-Class 2 obesity (BMI 37.1)
-Prediabetes (hgb A1C 6.1)
-Bradycardia
-S/P Orchiopexy as a child
-Acute postop blood loss/Anemia (stable without blood transfusion)
-Acute postop hypoxemia, requiring 15L midflow oxygenation
-Acute postop atelectasis
-Acute postop MESFIN
Discussed patient care with: Cardiology, Nursing, Respiratory Therapy, Pharmacy and Care Team
Subjective
Procedure
S/P Robotic assisted MIDCAB (double vessel bypass CRUZ in situ or diagonal sequential to LAD)/Robotic assisted harvest of internal mammary artery with anterolateral mini thoracotomy for CABG/Rib plating with a 6 hold plate, by Dr. Rodriguez, 02/20/25
-
Date of Service: February 22, 2025
Pt c/o incisional pain, otherwise feels well
Objective Data
-
Lab Results
02/22/25 04:35
PT 14.7 Sec (11.4-14.6) H 02/20/25 16:48
INR 1.12 02/20/25 16:48
APTT 28.0 Sec (23.4-35.0) 02/20/25 16:48
Vital Signs
Vital Signs
Temp Pulse Resp BP Pulse Ox
97.7 F 64 20 99/62 94
02/22/25 04:05 02/22/25 04:00 02/22/25 04:00 02/22/25 04:00 02/22/25 04:00
CT Intake/Output/Weight
02/21/25 02/21/25 02/22/25
06:59 18:59 06:59
Intake Total 953.5 / 1293.8 620.3 / 1408.3 788 / 1408.3
Output Total 535 / 725 420 / 645 225 / 645
Balance 418.5 / 568.8 200.3 / 763.3 563 / 763.3
SaO2: 92 (3L)
Physical Exam
-
General: Awake, Oriented and AOx3
Cardiovascular: Regular rate & rhythm, No Murmurs, No Rub and No Gallop
Respiratory: Decreased Breath Sounds (at bases, otherwise clear)
Sternum: Stable
Incision: Clean, Dry, Intact and Dressing Intact
Extremities: Other (+trace edema)
Data Reviewed
-
Lab Results: Results Reviewed
Medications: Active Meds Reviewed
Chest X-Ray: Report Reviewed and Image Reviewed
ECG: Report Reviewed and Image Reviewed

Documented by User: SOLIS Byers 02/22/25 13:38
Assessment / Plan
-
Assessment:
-S/P Robotic assisted MIDCAB (double vessel bypass CRUZ in situ or diagonal sequential to LAD)/Robotic assisted harvest of internal mammary artery with anterolateral mini thoracotomy for CABG/Rib plating with a 6 hold plate, by Dr. Rodriguez, 02/20/25,
pod#2
-S/P Successful PCI to the ramus with a 3.0 x 30 mm [place] drug-eluting stent, by Dr. Shields, 02/21/25
-Severe 2v CAD (involving LAD and Lcx)
-NSTEMI (trop 0.076), probable Type 2 NSTEMI
-Strong family hx MD (father passed @ age 55 from MD)
-LVEF 60% per intraop ERIKA
-Hypertensive emergency
-Hyperlipidemia
-Class 2 obesity (BMI 37.1)
-Prediabetes (hgb A1C 6.1)
-Bradycardia
-S/P Orchiopexy as a child
-Acute postop blood loss/Anemia (stable without blood transfusion)
-Acute postop hypoxemia, requiring 15L midflow oxygenation
-Acute postop atelectasis
-Acute postop MESFIN
-Acute post-op hypoxic respiratory failure
--- NOTE | 2025-02-22 07:58 | PN.DE.MGMTRT ---
Insulin Management
- -
02/22/2025 Diabetes Management Consult Follow up
Patient admitted 02/15 with chest pain; 02/16 cardiac cath; 02/20 robotic MIDCAB. PMH HTN, HLD, CAD, CHF. Prior to admission was taking no medications for diabetes. A1C 6.1%, cr 1.1, eGFR >60.
POD 2 s/p robotic MIDCAB. Patient is awake alert and oriented able to discuss glucose. at bedside. s/p cardiac cath 02/21.
02/22 cr 1.8, eGFR 44.18 Transitioned off glycemic protocol after dinner 02/21; to start low corrective insulin AC. Will discuss SGLT2 and consider to start tomorrow if cr and eGFR improved. Patient is agreeable. has determined farxiga would be
$180/month but patient could use the 0 copay card.
Discussed with nurse.
Will follow.
Diabetes History
- -
Type of Diabetes: 2
Pre-Admission Diabetes Regimen
02/22/25
04:35
Creatinine 1.8 H
Lab Results
Hemoglobin A1c 6.1 % (4.0-5.6) H 02/15/25 17:34
Insulin Pump Settings
IP Diabetes Regimen
02/21/25 02/21/25 02/21/25
09:12 10:08 11:10
Glucose
POC Glucose 128 H 132 H 117 H
02/21/25 02/21/25 02/21/25
11:56 13:06 14:10
Glucose
POC Glucose 121 H 100 H 122 H
02/21/25 02/21/25 02/21/25
16:08 18:06 20:38
Glucose
POC Glucose 137 H 109 H 132 H
02/22/25
04:35
Glucose 141 H
POC Glucose
Patient Education
--- NOTE | 2025-02-22 08:23 | W.PN.CD ---
Today's Communication / Plan
-
- Stable status-post PCI to ramus with 3.0x 30 mm MICHAEL yesterday.
- Continue ASA/Plavix, rosuvastatin, and Coreg.
Impression / Plan
-
I/P: 54M with hypertension and dyslipidemia who presented to the emergency department with a chief complaint of chest pain.
Outpatient process tank tender: None
NSTEMI/CAD:
-Cardiac cath with severe 2 vessel CAD
-Echocardiogram with normal EF, normal valves
-s/p robotic assisted MIDCAB (double vessel bypass CRUZ in situ or diagonal sequential to LAD), 02/20/2025
- Stable status-post PCI to ramus with 3.0x 30 mm MICHAEL yesterday.
- Continue ASA/Plavix, rosuvastatin, and Coreg.
- Continue air sampling and monitoring.
Hypertension:
- Stable/controlled.
- Try to add ACEI post CABG at some point, if blood pressure allows.
HFpEF, acute on chronic
- LVEDP elevated on initial diagnostic cath and again yesterday during PCI
- proBNP 103 (but BMI 37)
- Given IV Lasix yesterday.
- Additional GDMT post op, Case Mgmt to irby SGLT2i
Hypertriglyceridemia
-TG 420
Dyslipidemia
-LDL direct 134, goal < 55
-Continue high intensity statin with rosuvastatin 40mg QPM.
Fasting hyperglycemia, HgbA1c 6.1%
DATA:
Cath 02/16/25:
LV 176/12 (EDP 31) mmHg
AO 165/85 (mean 119) mmHg
CORONARY ANGIOGRAPHY
Dominance: right
LM: large with minimal disease
LAD: large vessel giving rise to a single large branching diagonal. There is a severe focal 90% stenosis prior to the diagonal takeoff and a serial 70-80% stenosis distal to the diagonal takeoff. The diagonal itself has a 95% ostial stenosis. There
is a focal 90% stenosis in the proximal aspect of the inferior branch of the diagonal.
LCx: moderate caliber vessel giving rise to a moderate caliber high rising OM at OM1/ramus. There is a focal 80% stenosis in the proximal aspect of the ramus. The continuation of the circumflex gives rise to several small marginal branches with
diffuse disease.
RCA: large vessel giving rise to a large RPDA, large RPL1, and moderate caliber RPL2. There is diffuse mild disease.
CONCLUSIONS
1. Severely elevated LV filling pressure and no aortic stenosis on hemodynamic pullback.
2. Severe two-vessel coronary artery disease as described in a right dominant system.
TTE 02/16/2025
Left ventricular ejection fraction is>75%. Normal regional wall motion.
Normal right ventricular size and function.
No significant valvular disease.
Physical Exam
Vital Signs/Labs
Vital Signs
Temp Pulse Resp BP Pulse Ox
97.7 F 70 14 120/64 94
02/22/25 04:05 02/22/25 06:00 02/22/25 06:00 02/22/25 04:31 02/22/25 06:20
02/21/25 02/22/25 02/23/25
06:59 06:59 06:59
Actual Weight 114 kg 114.9 kg
02/22/25 04:35
02/22/25 04:35
PT 14.7 Sec (11.4-14.6) H 02/20/25 16:48
INR 1.12 02/20/25 16:48
APTT 28.0 Sec (23.4-35.0) 02/20/25 16:48
Magnesium 2.6 mg/dl (1.6-2.3) H 02/22/25 04:35
Triglycerides 420 mg/dl (10-149) H 02/17/25 03:20
LDL Cholesterol, Calc mg/dl 02/17/25 03:20
VLDL Cholesterol, Calc mg/dl (0-30) 02/17/25 03:20
HDL Cholesterol 42 mg/dl 02/17/25 03:20
02/15/25
17:34
Gef-G-Gcrivfoliip Pept 103
Physical Exam
Constitutional: No acute distress and Comfortable
EENT: Anicteric
Cardiovascular: Rhythm & rate is regular, Systolic murmur absent, Pedal edema present (Trace) and S1S2 is normal
Respiratory: Respiratory effort normal and Lungs clear to auscul.
GI: Soft
Neuro/Psych: AO x 3
Other: Skin (Warm, dry, intact)
Data Reviewed
-
Date of Service: February 22, 2025
EKG: Tracing Personally Visualized and interpreted (Telemetry: Sinus rhythm)
Echo: Tracing Personally Visualized and interpreted (02/16/2025: LVEF greater than 75%; no significant valvular disease.)
Medical Tests (PFT, Pathology etc): Discussed with Patient
Labs: Labs Reviewed by me
Critical Care Time (in minutes): 36
[2025-02-22] MEDS: LIDOCAINE 4% PATCH 1 PATCH TOPICAL (08:36)
[2025-02-22] MEDS: PROTONIX 40 MG PO (08:37)
[2025-02-22] MEDS: LOW STRENGTH ASPIRIN 81 MG PO (08:37)
[2025-02-22] MEDS: PLAVIX 75 MG PO (08:37)
[2025-02-22] MEDS: SENOKOT-S 1 TABLET PO ×2 (08:37→20:18)
[2025-02-22] MEDS: COREG 6.25 MG PO ×2 (08:37→20:18)
[2025-02-22] MEDS: NEURONTIN 100 MG PO ×3 (08:37→22:02)
[2025-02-22] MEDS: PACERONE 200 MG PO ×3 (08:37→22:02)
[2025-02-22 08:45] LABS: Glucose - Point of Care 138 mg/dl (70-99)
[2025-02-22] MEDS: BACTROBAN 2% OINTMENT 1 APPLIC NASAL ×2 (08:45→20:18)
[2025-02-22] MEDS: NOVOLOG FLEXPEN-LOW RESISTANCE SC ×2 (08:45→12:44)
--- NOTE | 2025-02-22 08:51 | PTCARENOTE ---
assumed care of pt from previous shift RN, sinus rhythm on tele, VSS, + peripheral pulses, +2 edema to bilateral lower extremities. Lungs diminished, pox 95% on 2L NC, coughing and deep breathing encouraged. +BS, denies nausea. Pt remains DTV.
Surgical sites stable. PIV x2 and cordis flush easily. Assisted pt w ambulating in hallway. Plan of care reviewed and questions encouraged.
--- NOTE | 2025-02-22 10:32 | CM ---
Chart reviewed. Patient OOB sitting in the chair, appears to be in a lot of pain. Patient is indepenent of ADLS, lives with his significant other in a 2 STH, 2 CARMELA, 0 DME. 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 Plan is for the patient to return home
with CT Transitional RN. CM to follow
--- NOTE | 2025-02-22 11:12 | PTCARENOTE ---
2 view CXR completed
--- NOTE | 2025-02-22 12:45 | SUR.PHASEI ---
pt weaned to RA, VSS, pain better controlled.
--- NOTE | 2025-02-22 12:54 | PN.CDI ---
CDI
- -
CDI:
Physician Documentation Request
Admit Date: 02/15/25 17:[address] Surgery,
Please review the following and provide your response in the progress notes.
Clinical Indicators:
- Patient admit with NSTEMI
- per 02/20 RN note 'received from [facility]...SpO2 86-93% on 15L simple mask - placed on Bipap 14 IPAP/6 EPAP 15L oxygen'
- Documented VS indicate patient weaned to 6-7L O2, SpO2 88-93%
- 02/21 increased O2 to 15L midflow
Please clarify which of the following accurately represents the patient's respiratory status following surgery:
Acute hypoxic respiratory failure
Acute pulmonary insufficiency (following surgery)
Other (please specify)
Additional information for Pulmonary Insufficiency:
Consider when patients require intermediate manager oxygen therapy postoperatively
Weaned off oxygen initially then requiring supplemental oxygen
No other definitive diagnosis to support the need for oxygen (COPD exac, CHF etc.)
Unable to wean from vent
When criteria for respiratory failure not present
May extend stay or require additional resources; may need home O2
Additional information for Respiratory Failure:
Recognized criteria for Respiratory Failure (Source: [facility] Hospitalist Jun 2013)
ABGs: (1 or more) Symptoms Indicate:
1. p)2 <60 or RA SPO2 <91% on RA 1. Tachypnea, SOB, dyspnea 1. Type as:
2. pCO2 50 and pH <7.35 2. Use of accessory muscles a. Hypoxic
3. pO2 decrease of pCO2 increase by 3. Pallor or cyanosis b. Hypercapnic
10 mmHg from baseline if known 4. Anxiety or restlessness 2. If due to procedure or due to another cause
5. Unable to speak in full sentences
Supplemental O2 of > 40% Intubation is not required
Use of terms such as suspected, likely, concern for, or probable (associated with a specific diagnosis that is being evaluated, monitored, or treated as if it exists) are acceptable and can be coded in the inpatient setting, when documented at the
time of discharge.
Thank you,
Jennifer Hall RN
CDI Specialist
Please use your independent medical judgment in providing your response.
[2025-02-22] MEDS: NSS 500 IV (13:05)
[2025-02-22] MEDS: FERRLECIT 110 MG IV (13:05)
--- NOTE | 2025-02-22 13:24 | PTCARENOTE ---
pt bladder scanned for 326ml
--- NOTE | 2025-02-22 15:40 | PTCARENOTE ---
cordis removed without incident.
[2025-02-22 16:57] LABS: Glucose - Point of Care 158 mg/dl (70-99)
[2025-02-22] MEDS: CRESTOR 40 MG PO (16:57)
--- NOTE | 2025-02-22 17:51 | PTCARENOTE ---
pt report received from previous RN, rosa w/ previous assessment. Roxicodone given for pain. pt ambulated in hallway, OOB to chair for dinner.
[2025-02-22] MEDS: NOVOLOG FLEXPEN-LOW RESISTANCE 1 UNITS SC (18:07)
[2025-02-22] MEDS: MUCINEX 1200 MG PO (20:15)
[2025-02-22] MEDS: REMOVE LIDOCAINE PATCH 1 PATCH REMOVE (20:18)
--- NOTE | 2025-02-22 20:47 | PTCARENOTE ---
Assumed care of pt from dayshift RN. Walking rounds completed. Pt AAOx3. SR on the tele monitor. HR 80s. BP slightly high. SBP 161. DP pulses weak on palpation. Radial pulses palpable. B/L LE edema +2. Pt on RA. POX 90-93%. Lung sounds diminished
throughout. Pt w/ frequent moist harsh cough. Deep breathing and IS encouraged. Abdomen round. Nontender. +BSx4. Pt states he has voided during the day. All surgical sites stable. PIV x2 intact. See worklist for full nursing assessment and
interventions. Pt walked in ness x1 w/ assist x1 and another nurse following behind. Call salazar within reach.
[2025-02-23] VITALS (16 sets, daily range): BP systolic 139–216; BP diastolic 73–91; PULSE 89; O2SAT 95; BMI 37.4
--- NOTE | 2025-02-23 00:29 | PTCARENOTE ---
No acute change in assessment. Pt is SR on the tele monitor. HR 60-70s. BP stable. Pt on RA. POX 94%. Frequent cough. Pt voiding as needed. Pain under control at this time. Call salazar within reach.
[2025-02-23] MEDS: ROXICODONE 5 MG PO ×2 (04:29→10:41)
[2025-02-23] MEDS: COREG 6.25 MG PO ×2 (04:30→10:41)
[2025-02-23 05:06] LABS: Hematocrit 36.0 % (39.0-52.0); Hemoglobin 12.3 g/dL (13.0-18.0); Mean Corp Hgb Conc. 34.2 g/dL (33.0-37.0); Mean Corpuscular Volume 85.5 fL (80.0-94.0); Platelet Count 246 10^3/uL (130-400); Red Cell Dist. Width 14.3 % (11.5-14.5)
--- NOTE | 2025-02-23 05:25 | PTCARENOTE ---
Pt reassessed. Remains SR. HR 60-80s. BP high. AM Coreg given early. Pt on RA. POX 91%. Voiding as needed. Labs sent. See MAR for pain medication administration. Call salazar within reach.
[2025-02-23 05:35] LABS: Blood Urea Nitrogen 38 mg/dl (9-20); Calcium 9.1 mg/dl (8.4-10.2); Carbon Dioxide 24 mmol/L (22-30); Chloride 102 mmol/L (98-107); Estimated Creatinine Clearance 88 ml/min; Glucose 133 mg/dl (70-99); Magnesium 2.9 mg/dl (1.6-2.3); Potassium 5.0 mmol/L (3.5-5.1); Sodium 136 mmol/L (135-145); eGFR > 60.00
[2025-02-23] MEDS: TYLENOL 1000 MG PO ×3 (06:35→22:20)
--- NOTE | 2025-02-23 07:08 | W.PN.CT ---
Today's Communication / Plan
-
-pod #3
-no significant issues overnight. - on Mucinex, continue IS and acapella
-has productive cough and some splinting - did chest PT, IS 750-1000, continue Mucinex, IS, and acapella
-check pOx on RA with ambulation. Increase OOB and ambulation. Wean O2 as tolerated - pOx was 90% on RA and 94% on 2L overnight
-follow Cr - 1.2 today (1.8 on 02/22, 1.1 on 02/21 and 1.0 preop)
-LVEDP was 29 during cath on 02/21- consider diuresis
-current meds (ASA, Plavix, Coreg 6.25 bid, Amio, Crestor, iv iron, Protonix). Holding Mg d/t MESFIN
-had 2v-CXR on 02/22: small b/l pleural effusions, L>R atelectasis.
-CXR today without improvement, with L mid and lower lung opacity and R basilar opacity, possibly atelectasis
-increase ambulation, encourage IS (750-1000 so far). Will ask Respiratory for chest PT
Assessment / Plan
-
Assessment:
-S/P Robotic assisted MIDCAB (double vessel bypass CRUZ in situ or diagonal sequential to LAD)/Robotic assisted harvest of internal mammary artery with anterolateral mini thoracotomy for CABG/Rib plating with a 6 hold plate, by Dr. Rodriguez, 02/20/25,
pod#3
-S/P Successful PCI to the ramus with a 3.0 x 30 mm James [place] drug-eluting stent, by Dr. Shields, 02/21/25
-Severe 2v CAD (involving LAD and Lcx)
-NSTEMI (trop 0.076), probable Type 2 NSTEMI
-Strong family hx [place] (father passed @ age 55 from [place])
-LVEF 60% per intraop ERIKA
-Hypertensive emergency
-Hyperlipidemia
-Class 2 obesity (BMI 37.1)
-Prediabetes (hgb A1C 6.1)
-Bradycardia
-S/P Orchiopexy as a child
-Acute postop blood loss/Anemia (stable without blood transfusion)
-Acute postop hypoxemia, requiring 15L midflow oxygenation
-Acute postop atelectasis
-Acute postop MESFIN
-Acute post-op hypoxic respiratory failure- improved
-Acute postop small b/l pleural effusions, b/l atelectasis (L>R)
Discussed patient care with: Nursing and Care Team
Subjective
Procedure
S/P Robotic assisted MIDCAB (double vessel bypass CRUZ in situ or diagonal sequential to LAD)/Robotic assisted harvest of internal mammary artery with anterolateral mini thoracotomy for CABG/Rib plating with a 6 hold plate, by Dr. Rodriguez, 02/20/25
-
Date of Service: February 22, 2025
Objective Data
-
Lab Results
02/22/25 04:35
02/22/25 04:35
PT 14.7 Sec (11.4-14.6) H 02/20/25 16:48
INR 1.12 02/20/25 16:48
APTT 28.0 Sec (23.4-35.0) 02/20/25 16:48
Vital Signs
Vital Signs
Temp Pulse Resp BP Pulse Ox
98.6 F 86 18 161/79 94
02/22/25 20:14 02/22/25 20:14 02/22/25 20:14 02/22/25 20:14 02/22/25 22:00
CT Intake/Output/Weight
02/22/25 02/22/25 02/23/25
06:59 18:59 06:59
Intake Total 1348 / 1968.3 120 / 120
Output Total 375 / 795 350 / 850 500 / 850
Balance 973 / 1173.3 -230 / -730 -500 / -730
SaO2: 94
Physical Exam
-
General: Awake, Oriented and AOx3
Cardiovascular: Regular rate & rhythm, No Murmurs, No Rub and No Gallop
Respiratory: Decreased Breath Sounds (at bases, otherwise clear)
Sternum: Stable
Incision: Clean, Dry, Intact and Dressing Intact
Extremities: Other (+trace edema)
Data Reviewed
-
Lab Results: Results Reviewed
Medications: Active Meds Reviewed
Chest X-Ray: Report Reviewed and Image Reviewed
ECG: Report Reviewed and Image Reviewed
--- NOTE | 2025-02-23 07:59 | W.PN.CD ---
Today's Communication / Plan
-
diuresis
resume home BP meds
pulm rehab per CT
Impression / Plan
-
I/P: 54M with hypertension and dyslipidemia who presented to the emergency department with a chief complaint of chest pain.
Outpatient clay products glazer: None
NSTEMI/CAD:
-Cardiac cath with severe 2 vessel CAD
-Echocardiogram with normal EF, normal valves
-s/p robotic assisted MIDCAB (double vessel bypass CRUZ in situ or diagonal sequential to LAD), 02/20/2025
- Stable status-post PCI to ramus with 3.0x 30 mm MICHAEL 02/21/2025
- Continue ASA/Plavix, rosuvastatin, and Coreg.
- Continue residential monitor.
- post op care per CT, main issue has been pulmonary rehab
Hypertension:
- SBPs 140s-160s
- reinitiate home BP meds and consider addition of ACEi
HFpEF, acute on chronic
- LVEDP elevated on initial diagnostic cath and again during PCI, CXR with progressive opacification favored to represent atelectasis but possible component of pulmonary edema, pinky. in light of elevated filling pressures
- recommend more aggressive diuresis to target 1-2 L negative daily
- can consider SGLT2i prior to discharge, case management to check pricing
Hypertriglyceridemia
-TG 420
Dyslipidemia
-LDL direct 134, goal < 55
-Continue high intensity statin with rosuvastatin 40mg QPM.
Fasting hyperglycemia, HgbA1c 6.1%
DATA:
CXR 02/23
Bilateral opacification again seen, left greater than right, without significant change, most likely representing subsegmental atelectasis.
Cath 02/16/25:
LV 176/12 (EDP 31) mmHg
AO 165/85 (mean 119) mmHg
CORONARY ANGIOGRAPHY
Dominance: right
LM: large with minimal disease
LAD: large vessel giving rise to a single large branching diagonal. There is a severe focal 90% stenosis prior to the diagonal takeoff and a serial 70-80% stenosis distal to the diagonal takeoff. The diagonal itself has a 95% ostial stenosis. There
is a focal 90% stenosis in the proximal aspect of the inferior branch of the diagonal.
LCx: moderate caliber vessel giving rise to a moderate caliber high rising OM at OM1/ramus. There is a focal 80% stenosis in the proximal aspect of the ramus. The continuation of the circumflex gives rise to several small marginal branches with
diffuse disease.
RCA: large vessel giving rise to a large RPDA, large RPL1, and moderate caliber RPL2. There is diffuse mild disease.
CONCLUSIONS
1. Severely elevated LV filling pressure and no aortic stenosis on hemodynamic pullback.
2. Severe two-vessel coronary artery disease as described in a right dominant system.
TTE 02/16/2025
Left ventricular ejection fraction is>75%. Normal regional wall motion.
Normal right ventricular size and function.
No significant valvular disease.
Physical Exam
Vital Signs/Labs
Vital Signs
Temp Pulse Resp BP Pulse Ox
37.1 C 65 20 142/86 92
02/23/25 04:10 02/23/25 07:00 02/23/25 04:10 02/23/25 06:34 02/23/25 07:00
02/22/25 02/23/25 02/24/25
06:59 06:59 06:59
Actual Weight 114.9 kg 114.8 kg
02/23/25 04:57
02/23/25 04:57
PT 14.7 Sec (11.4-14.6) H 02/20/25 16:48
INR 1.12 02/20/25 16:48
APTT 28.0 Sec (23.4-35.0) 02/20/25 16:48
Magnesium 2.9 mg/dl (1.6-2.3) H 02/23/25 04:57
Triglycerides 420 mg/dl (10-149) H 02/17/25 03:20
LDL Cholesterol, Calc mg/dl 02/17/25 03:20
VLDL Cholesterol, Calc mg/dl (0-30) 02/17/25 03:20
HDL Cholesterol 42 mg/dl 02/17/25 03:20
02/15/25
17:34
[id number]-[id number]-Gnjuzkyqjjc Pept 103
Physical Exam
Constitutional: Comfortable
Cardiovascular: Rhythm & rate is regular
Respiratory: Respiratory effort normal
Neuro/Psych: AO x 3
Data Reviewed
-
Date of Service: February 23, 2025
Medical Decision Making: Reviewed Test Results
EKG: Tracing Personally Visualized and interpreted
X-Ray/CT/US/MRI/NUC/PET: Image Personally Visualized and interpreted
Labs: Labs Reviewed by me
--- NOTE | 2025-02-23 08:50 | PN.DE.MGMTRT ---
Insulin Management
- -
02/23/2025 Diabetes Management Consult Follow up
Patient admitted 02/15 with chest pain; 02/16 cardiac cath; 02/20 robotic MIDCAB. PMH HTN, HLD, CAD, CHF. Prior to admission was taking no medications for diabetes. A1C 6.1%, cr 1.1, eGFR >60.
POD 3 s/p robotic MIDCAB. Patient is awake alert and oriented able to discuss glucose. at bedside. s/p cardiac cath 02/21.
02/23 cr improved from 1.8 to 1.2 , eGFR improved from 44.18 to > 60. Glucose range 141 to 158. Fasting today 133. CM has determined farxiga would be $180/month but patient could use the 0 copay card. Will start Farxiga 10 mg daily today.
Discussed with nurse.
Will follow.
Diabetes History
- -
Type of Diabetes: 2
Pre-Admission Diabetes Regimen
02/23/25
04:57
Creatinine 1.2
Lab Results
Hemoglobin A1c 6.1 % (4.0-5.6) H 02/15/25 17:34
Insulin Pump Settings
IP Diabetes Regimen
02/22/25 02/23/25
16:56 04:57
Glucose 133 H
POC Glucose 158 H
Meal type: Dinner
Meal type: Breakfast
Amount consumed: 100%
Patient Education
[2025-02-23] MEDS: PROTONIX 40 MG PO (09:35)
[2025-02-23] MEDS: PLAVIX 75 MG PO (09:35)
[2025-02-23] MEDS: NEURONTIN 100 MG PO ×3 (09:35→22:00)
[2025-02-23] MEDS: SENOKOT-S 1 TABLET PO ×2 (09:35→20:08)
[2025-02-23] MEDS: LOW STRENGTH ASPIRIN 81 MG PO (09:35)
[2025-02-23] MEDS: LASIX 40 MG IV (09:36)
[2025-02-23] MEDS: PACERONE 200 MG PO ×3 (09:36→22:21)
[2025-02-23] MEDS: FARXIGA 10 MG PO (09:36)
[2025-02-23] MEDS: MUCINEX 1200 MG PO ×2 (09:36→20:08)
[2025-02-23] MEDS: LIDOCAINE 4% PATCH 1 PATCH TOPICAL (09:36)
[2025-02-23] MEDS: BACTROBAN 2% OINTMENT 1 APPLIC NASAL ×2 (09:37→20:07)
[2025-02-23] MEDS: NSS IV (09:37)
--- NOTE | 2025-02-23 09:40 | PTCARENOTE ---
Assumed care of patient at 0700. Pt is awake, alert, and oriented. Pt with no complaints of pain at the moment, states has increased pain with coughing and deep breathing. Pt remains SR with HR 62. BP 141/77 MAP 94. Pulse oximetry 94% on room air.
Pt tolerating PO diet. Voiding in urinal. Left lateral incision approximated with surgical adhesive. Pt currently resting comfortably with call salazar within reach.
[2025-02-23] MEDS: NOVOLOG FLEXPEN-LOW RESISTANCE SC ×3 (09:41→18:25)
[2025-02-23 09:43] LABS: Glucose - Point of Care 132 mg/dl (70-99)
--- NOTE | 2025-02-23 11:05 | CM ---
Chart reviewed. Patient ambulating the ness with PT and did the stairs. Patient is independent of ADLS, lives with his significant other in a 2 STH, 2 CARMELA, 0 DME. 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 Plan is for the patient to return home with CT
Transitional RN. CM to follow
[2025-02-23 11:40] LABS: Potassium 4.5 mmol/L (3.5-5.1)
[2025-02-23] MEDS: ZESTRIL 10 MG PO (11:52)
--- NOTE | 2025-02-23 11:59 | PTCARENOTE ---
Pt ambulated with cardiac rehab and completed steps. Pt is dyspneic on exertion but tolerated ambulation. S/p ambulation BP 216/[address] OTONIEL, Natty made aware. Additional dose of Coreg administered per order. Lisinopril administered per order
after reassessing potassium level. Repeat BP at this time 173/82 MAP 107. 40mg IV Lasix administered this AM, pt voiding clear yellow urine in urinal. Pt currently OOB in chair.
[2025-02-23] MEDS: FERRLECIT 110 MG IV (15:07)
--- NOTE | 2025-02-23 16:39 | PTCARENOTE ---
assisted pt w walking in ness, tolerated well, VSS.
[2025-02-23] MEDS: CRESTOR 40 MG PO (18:25)
[2025-02-23 18:26] LABS: Glucose - Point of Care 141 mg/dl (70-99)
--- NOTE | 2025-02-23 20:00 | PTCARENOTE ---
assumed care of patient @1900, Patient alert and oriented X 3, follows all commands, moves all extremities, good bilateral strength, PERRLA. OOB to chair, ambulating in room on own. Pain tolerable, denies when at rest. Lungs course posteriorly,
encouraged IS usage, had vibration vest on for PT Treatment. tolerated well. Placed on 2 L NC O2 Sat 93 %. Normal Sinus rhythm, BP elevator Coreg dose increased pulses present in all extremities. + 1 edema in lower extremities. Bowel sounds
hyper active and passing gas, no BM. Voids on own without issue, clear yellow. CHG bath completed.
[2025-02-23] MEDS: COREG 12.5 MG PO (20:35)
[2025-02-23] MEDS: REMOVE LIDOCAINE PATCH 1 PATCH REMOVE (22:22)
[2025-02-24] VITALS (17 sets, daily range): BP systolic 124–165; BP diastolic 73–88; PULSE 63; O2SAT 96–97; BMI 36.9
--- NOTE | 2025-02-24 01:38 | PTCARENOTE ---
patient resting comfortable in BEd, Voided , denies pain at this time. NSR/ SB, on 3 L NC when sleeping, snoring.
[2025-02-24 04:12] LABS: Hematocrit 35.1 % (39.0-52.0); Hemoglobin 12.0 g/dL (13.0-18.0); Mean Corp Hgb Conc. 34.2 g/dL (33.0-37.0); Mean Corpuscular Volume 85.4 fL (80.0-94.0); Platelet Count 282 10^3/uL (130-400); Red Cell Dist. Width 14.1 % (11.5-14.5)
--- NOTE | 2025-02-24 04:12 | W.PN.CT ---
Today's Communication / Plan
-
-pod #4
-no significant issues overnight. Looks and feels better, still has ODOM, on 3L O2 though- on Mucinex, continue IS and acapella. Continue vibra vest therapy, IS improved upto 1250
-diuresed 1000+ with 40 iv Lasix on 02/23. Wt is back at preop 249 lbs
-follow Cr - 1.3 today (1.2 on 02/23, 1.8 on 02/22, 1.1 on 02/21 and 1.0 preop)
-LVEDP was 29 during cath on 02/21
-current meds (ASA, Plavix, Coreg 12.5 bid, Amio, Farxiga, Zestril 10, Crestor, iv iron, Protonix). Holding Mg d/t MESFIN
-follow CXR
-encouraged pt to increase ambulation, increase IS, wean off O2
-possible d/c soon
Assessment / Plan
-
Assessment:
-S/P Robotic assisted MIDCAB (double vessel bypass CRUZ in situ or diagonal sequential to LAD)/Robotic assisted harvest of internal mammary artery with anterolateral mini thoracotomy for CABG/Rib plating with a 6 hold plate, by Dr. Rodriguez, 02/20/25,
pod#4
-S/P Successful PCI to the ramus with a 3.0 x 30 mm James [place] drug-eluting stent, by Dr. Shields, 02/21/25
-Severe 2v CAD (involving LAD and Lcx)
-NSTEMI (trop 0.076), probable Type 2 NSTEMI
-Strong family hx [place] (father passed @ age 55 from [place])
-LVEF 60% per intraop ERIKA
-Hypertensive emergency
-Hyperlipidemia
-Class 2 obesity (BMI 37.1)
-Prediabetes (hgb A1C 6.1)
-Bradycardia
-S/P Orchiopexy as a child
-Acute postop blood loss/Anemia (stable without blood transfusion)
-Acute postop hypoxemia, requiring 15L midflow oxygenation
-Acute postop atelectasis
-Acute postop MESFIN
-Acute post-op hypoxic respiratory failure- improved
-Acute postop small b/l pleural effusions, b/l atelectasis (L>R)
Discussed patient care with: Nursing and Care Team
Subjective
Procedure
S/P Robotic assisted MIDCAB (double vessel bypass CRUZ in situ or diagonal sequential to LAD)/Robotic assisted harvest of internal mammary artery with anterolateral mini thoracotomy for CABG/Rib plating with a 6 hold plate, by Dr. Rodriguez, 02/20/25
-
Date of Service: February 24, 2025
Objective Data
-
PT 14.7 Sec (11.4-14.6) H 02/20/25 16:48
INR 1.12 02/20/25 16:48
APTT 28.0 Sec (23.4-35.0) 02/20/25 16:48
Vital Signs
Vital Signs
Temp Pulse Resp BP Pulse Ox
98.3 F 58 18 133/88 94
02/23/25 20:00 02/24/25 01:07 02/23/25 19:25 02/24/25 01:07 02/24/25 01:07
CT Intake/Output/Weight
02/23/25 02/23/25 02/24/25
06:59 18:59 06:59
Intake Total 120 / 120
Output Total 800 / 1150 1000 / 1000
Balance -800 / -1030 -1000 / -880 120 / -880
SaO2: 94
Physical Exam
-
General: Awake and AOx3
Cardiovascular: Regular rate & rhythm, No Murmurs and No Rub
Respiratory: Decreased Breath Sounds
Sternum: Stable
Incision: Clean, Dry and Intact
Extremities: No Edema
Abdomen: soft, nontender, nondistended, + bowel sounds, no nausea, + flatus, no BM
Data Reviewed
-
Lab Results: Results Reviewed
Medications: Active Meds Reviewed
Chest X-Ray: Report Reviewed and Image Reviewed
ECG: Report Reviewed and Image Reviewed
[2025-02-24 04:33] LABS: Blood Urea Nitrogen 34 mg/dl (9-20); Calcium 8.4 mg/dl (8.4-10.2); Carbon Dioxide 25 mmol/L (22-30); Chloride 105 mmol/L (98-107); Estimated Creatinine Clearance 81 ml/min; Glucose 120 mg/dl (70-99); Magnesium 2.8 mg/dl (1.6-2.3); Potassium 4.6 mmol/L (3.5-5.1); Sodium 136 mmol/L (135-145); eGFR > 60.00
[2025-02-24] MEDS: TYLENOL 1000 MG PO ×3 (05:07→22:31)
[2025-02-24] MEDS: NSS IV (07:20)
--- NOTE | 2025-02-24 07:48 | PN.DE.MGMTRT ---
Insulin Management
- -
02/24/2025: Diabetes Management Follow up
Patient admitted 02/15 with chest pain; 02/16 cardiac cath; 02/20 robotic MIDCAB. PMH HTN, HLD, CAD, CHF. Prior to admission was taking no medications for diabetes. A1C 6.1%, cr 1.1, eGFR >60.
POD # 4 s/p robotic MIDCAB. Patient is awake alert and oriented able to discuss glucose. at bedside. s/p cardiac cath 02/21.
02/23 Cr improved from 1.8 to 1.2 , eGFR improved from 44.18 to > 60. Glucose range 132 to 141. Fasting today 120 V.
Will make no change to current regimen: Cont Farxiga 10 mg daily
has determined Farxiga would be $180/month but patient could use the 0 co-pay card.
Will cont to follow. Discussed with nurse.
.
Diabetes History
- -
Type of Diabetes: 2
Pre-Admission Diabetes Regimen
02/24/25
03:48
Creatinine 1.3
Lab Results
Hemoglobin A1c 6.1 % (4.0-5.6) H 02/15/25 17:34
Insulin Pump Settings
IP Diabetes Regimen
02/23/25 02/23/25 02/24/25
09:38 18:24 03:48
Glucose 120 H
POC Glucose 132 H 141 H
Meal type: Dinner
Meal type: Breakfast
Amount consumed: 95%
Amount consumed: 90%
Patient Education
[2025-02-24] MEDS: LIDOCAINE 4% PATCH 1 PATCH TOPICAL (07:54)
[2025-02-24] MEDS: PACERONE 200 MG PO ×3 (07:55→22:31)
[2025-02-24] MEDS: PROTONIX 40 MG PO (07:55)
[2025-02-24] MEDS: SENOKOT-S 1 TABLET PO ×2 (07:55→20:28)
[2025-02-24] MEDS: BACTROBAN 2% OINTMENT 1 APPLIC NASAL (07:55)
[2025-02-24] MEDS: NEURONTIN 100 MG PO ×3 (07:55→22:30)
[2025-02-24] MEDS: FARXIGA 10 MG PO (07:55)
[2025-02-24] MEDS: ZESTRIL 10 MG PO (07:55)
[2025-02-24] MEDS: PLAVIX 75 MG PO (07:55)
[2025-02-24] MEDS: MUCINEX 1200 MG PO ×2 (07:55→20:27)
[2025-02-24] MEDS: LOW STRENGTH ASPIRIN 81 MG PO (07:55)
[2025-02-24] MEDS: COREG 12.5 MG PO ×2 (07:55→20:27)
[2025-02-24] MEDS: NOVOLOG FLEXPEN-LOW RESISTANCE 1 UNITS SC (07:59)
--- NOTE | 2025-02-24 08:00 | PTCARENOTE ---
Assumed care of patient. Walking rounds completed with previous RN. Pt assessed while he was sitting up in the chair. Pt alert and oriented x4. c/o pain 'only when coughing'. Denies nausea. ODOM. BURCIAGA with equal strength throughout. SB-NSR on tele
with rates 50s-60s. BP 151/73. Heart tones audible. Bilateral radial and DP pulses weakly palpable. Bilateral lower extremity edema +1. POX 92% on 2L NC. Lungs diminished throughout. Occasional cough with green/nichols/white sputum as per patient. IS
encouraged-1500mL achieved. CDB highly encouraged. Tolerating diet. Abdomen soft, round, obese. nontender. +BS. Passing gas per patient. Due to void for this RN. Left lateral chest incision approximated with skin glue, TRACK LAYER HEAD. Left lateral chest
puncture sites approximated, [id number]. Old chest tube site covered with gauze, changed. Left AC 20g PIV intact. See MAR for medication administration. See worklist for complete nursing assessment. Plan of care reviewed and patient in agreement.
[2025-02-24 08:05] LABS: Glucose - Point of Care 172 mg/dl (70-99)
[2025-02-24] MEDS: LASIX 40 MG IV (11:50)
--- NOTE | 2025-02-24 12:00 | PTCARENOTE ---
Pt reassessed. NSR with rates in the 60s. BP 138/73. POX 96% on RA. Pt voided 200ml mya urine in the urinal. Instructed to measure output. Ambulated in the ness. Tolerated. Continued to encouraged IS.
[2025-02-24 12:08] LABS: Glucose - Point of Care 120 mg/dl (70-99)
[2025-02-24] MEDS: NOVOLOG FLEXPEN-LOW RESISTANCE SC ×2 (12:11→18:07)
--- NOTE | 2025-02-24 14:59 | CM ---
Chart reviewed. Patient is OOB sitting in the chair. Patient is independent of ADLS, lives with his significant other in a 1 STH, 0 CARMELA, 0 DME. Plan is for the patient to return home with CT Transitional RN.
--- NOTE | 2025-02-24 16:00 | PTCARENOTE ---
Pt reassessed. NSR with rates in the 60s. BP 161/86, CT COMPENSATION AND BENEFITS ADMINISTRATOR notified. POX 94% on RA. Surgical sites stable. Pt reported 'popping' feeling in left sided chest. CT COMPENSATION AND BENEFITS ADMINISTRATOR notified, in to assess patient. Pt denies pain. Will continue to monitor.
[2025-02-24] MEDS: CRESTOR 40 MG PO (16:03)
[2025-02-24 18:07] LABS: Glucose - Point of Care 100 mg/dl (70-99)
[2025-02-24] MEDS: NORVASC 5 MG PO (18:07)
--- NOTE | 2025-02-24 18:10 | W.PN.CD ---
Today's Communication / Plan
-
add home amlodipine for HTN
consider daily PO diruetic if weight increases
Impression / Plan
-
I/P: 54M with hypertension and dyslipidemia who presented to the emergency department with a chief complaint of chest pain.
Outpatient hangar attendant: None
NSTEMI/CAD:
-Cardiac cath with severe 2 vessel CAD
-Echocardiogram with normal EF, normal valves
-s/p robotic assisted MIDCAB (double vessel bypass CRUZ in situ or diagonal sequential to LAD), 02/20/2025
- Stable status-post PCI to ramus with 3.0x 30 mm MICHAEL 02/21/2025
- Continue ASA/Plavix, rosuvastatin, and Coreg.
- Continue glassware defect repairer.
- post op care per CT, main issue has been pulmonary rehab
Hypertension:
- SBPs 140s-160s
- reinitiate home amlodipine in addition to current coreg/lisinopril
HFpEF, acute on chronic
- LVEDP elevated on initial diagnostic cath and again during PCI, CXR with progressive opacification favored to represent atelectasis but possible component of pulmonary edema, pinky. in light of elevated filling pressures
- can consider SGLT2i addition as outpatient
- monitor daily weight and I/O, may need daily diuretic to maintain euvolemia
Hypertriglyceridemia
-TG 420
Dyslipidemia
-LDL direct 134, goal < 55
-Continue high intensity statin with rosuvastatin 40mg QPM.
Fasting hyperglycemia, HgbA1c 6.1%
DATA:
CXR 02/23
Bilateral opacification again seen, left greater than right, without significant change, most likely representing subsegmental atelectasis.
Cath 02/16/25:
LV 176/12 (EDP 31) mmHg
AO 165/85 (mean 119) mmHg
CORONARY ANGIOGRAPHY
Dominance: right
LM: large with minimal disease
LAD: large vessel giving rise to a single large branching diagonal. There is a severe focal 90% stenosis prior to the diagonal takeoff and a serial 70-80% stenosis distal to the diagonal takeoff. The diagonal itself has a 95% ostial stenosis. There
is a focal 90% stenosis in the proximal aspect of the inferior branch of the diagonal.
LCx: moderate caliber vessel giving rise to a moderate caliber high rising OM at OM1/ramus. There is a focal 80% stenosis in the proximal aspect of the ramus. The continuation of the circumflex gives rise to several small marginal branches with
diffuse disease.
RCA: large vessel giving rise to a large RPDA, large RPL1, and moderate caliber RPL2. There is diffuse mild disease.
CONCLUSIONS
1. Severely elevated LV filling pressure and no aortic stenosis on hemodynamic pullback.
2. Severe two-vessel coronary artery disease as described in a right dominant system.
TTE 02/16/2025
Left ventricular ejection fraction is>75%. Normal regional wall motion.
Normal right ventricular size and function.
No significant valvular disease.
Physical Exam
Vital Signs/Labs
Vital Signs
Temp Pulse Resp BP Pulse Ox
36.6 C 61 16 154/86 94
02/24/25 15:56 02/24/25 18:06 02/24/25 15:56 02/24/25 18:06 02/24/25 15:56
02/23/25 02/24/25 02/25/25
06:59 06:59 06:59
Actual Weight 114.8 kg 113.3 kg
02/24/25 03:48
02/24/25 03:48
PT 14.7 Sec (11.4-14.6) H 02/20/25 16:48
INR 1.12 02/20/25 16:48
APTT 28.0 Sec (23.4-35.0) 02/20/25 16:48
Magnesium 2.8 mg/dl (1.6-2.3) H 02/24/25 03:48
Triglycerides 420 mg/dl (10-149) H 02/17/25 03:20
LDL Cholesterol, Calc mg/dl 02/17/25 03:20
VLDL Cholesterol, Calc mg/dl (0-30) 02/17/25 03:20
HDL Cholesterol 42 mg/dl 02/17/25 03:20
02/15/25
17:34
[id number]-Cgcszdfuhvw Pept 103
Physical Exam
Constitutional: Comfortable
Cardiovascular: Rhythm & rate is regular
Respiratory: Respiratory effort normal
Neuro/Psych: AO x 3
Data Reviewed
-
Date of Service: February 24, 2025
[2025-02-24] MEDS: REMOVE LIDOCAINE PATCH 1 PATCH REMOVE (20:27)
--- NOTE | 2025-02-24 20:30 | PTCARENOTE ---
Patient received standing in doorway of room. Large amount of serosanguineous drainage on left side of gown. Patient in bathroom then had vigorous coughing episode - Noticed blood on gown. PA for CT Surgery, Monica Spencer PA-C, assessed
surgical area. Chest tube site redressed. Patient given CHG bath and linens changed. Left anterior chest incision intact - Surgical adhesive - Open to air. Left lateral chest region - 3 puncture sites intact - Open to air. O2 at 2L via NC.
SpO2 91%. Clicking auscultated/palpated on left anterior chest - No changes from previous assessment. Sinus Rhythm. Heart rate 70's. Blood pressure 148/85 (97). Patient with no c/o chest pain, pressure or discomfort. Abdomen round, obese,
nontender. Normoactive bowel sounds. No BM. Voiding. Generalized edema. Bilateral lower extremity edema. Positive, palpable pulses. Patient with no c/o back or flank pain. Assessment as documented.
[2025-02-24 22:36] LABS: Glucose - Point of Care 116 mg/dl (70-99)
--- NOTE | 2025-02-25 00:30 | PTCARENOTE ---
Patient sleeping in recliner chair. No further changes from previous assessment.
[2025-02-25 03:38] VITALS: BP 143/74
[2025-02-25 03:40] VITALS: BP 143/74
--- NOTE | 2025-02-25 04:03 | W.PN.CT ---
Today's Communication / Plan
-
-pod #5
-no significant issues overnight. Looks and feels better. Moderate amount of serosanguineous drainage from the incision last night from some straining
-on Mucinex, continue IS and acapella. Continue vibra vest therapy, IS improved upto 1500
-diuresed 1200 with 40 iv Lasix on 02/24.
-follow Cr - 1.2 today (1.3 on 02/24, 1.2 on 02/23, peak 1.8 on 02/22, and 1.0 preop)
-LVEDP was 29 during cath on 02/21
-current meds (ASA, Plavix, Coreg 12.5 bid, Amio, Farxiga, Zestril 10, Crestor, iv iron, Protonix). Holding Mg d/t MESFIN
-follow CXR
-encouraged pt to increase ambulation, increase IS, wean off O2
-possible d/c soon
Assessment / Plan
-
Assessment:
-S/P Robotic assisted MIDCAB (double vessel bypass CRUZ in situ or diagonal sequential to LAD)/Robotic assisted harvest of internal mammary artery with anterolateral mini thoracotomy for CABG/Rib plating with a 6 hold plate, by Dr. Rodriguez, 02/20/25,
pod#5
-S/P Successful PCI to the ramus with a 3.0 x 30 mm [place] drug-eluting stent, by Dr. Shields, 02/21/25
-Severe 2v CAD (involving LAD and Lcx)
-NSTEMI (trop 0.076), probable Type 2 NSTEMI
-Strong family hx IA (father passed @ age 55 from IA)
-LVEF 60% per intraop ERIKA
-Hypertensive emergency
-Hyperlipidemia
-Class 2 obesity (BMI 37.1)
-Prediabetes (hgb A1C 6.1)
-Bradycardia
-S/P Orchiopexy as a child
-Acute postop blood loss/Anemia (stable without blood transfusion)
-Acute postop hypoxemia, requiring 15L midflow oxygenation
-Acute postop atelectasis
-Acute postop MESFIN
-Acute post-op hypoxic respiratory failure- improved
-Acute postop small b/l pleural effusions, b/l atelectasis (L>R)
Discussed patient care with: Nursing and Care Team
Subjective
Procedure
S/P Robotic assisted MIDCAB (double vessel bypass CRUZ in situ or diagonal sequential to LAD)/Robotic assisted harvest of internal mammary artery with anterolateral mini thoracotomy for CABG/Rib plating with a 6 hold plate, by Dr. Rodriguez, 02/20/25
-
Date of Service: February 25, 2025
Objective Data
-
PT 14.7 Sec (11.4-14.6) H 02/20/25 16:48
INR 1.12 02/20/25 16:48
APTT 28.0 Sec (23.4-35.0) 02/20/25 16:48
Vital Signs
Vital Signs
Temp Pulse Resp BP Pulse Ox
99.5 F 68 16 143/74 93
02/25/25 03:40 02/25/25 03:40 02/25/25 03:40 02/25/25 03:40 02/25/25 03:40
CT Intake/Output/Weight
02/24/25 02/24/25 02/25/25
06:59 18:59 06:59
Intake Total 240 / 240 480 / 960 480 / 960
Output Total 1200 / 1600 400 / 1600
Balance 240 / -760 -720 / -640 80 / -640
SaO2: 93
Physical Exam
-
General: Awake and AOx3
Cardiovascular: Regular rate & rhythm, No Murmurs and No Rub
Respiratory: Decreased Breath Sounds
Sternum: Stable
Incision: Clean and Intact (moderate amount of serosanguinous discharge came out with straining/cough)
Extremities: No Edema
Abdomen: soft, nontender, nondistended
Data Reviewed
-
Lab Results: Results Reviewed
Medications: Active Meds Reviewed
Chest X-Ray: Report Reviewed and Image Reviewed
ECG: Report Reviewed and Image Reviewed
[2025-02-25 04:06] LABS: Hematocrit 35.3 % (39.0-52.0); Hemoglobin 12.1 g/dL (13.0-18.0); Mean Corp Hgb Conc. 34.3 g/dL (33.0-37.0); Mean Corpuscular Volume 84.9 fL (80.0-94.0); Platelet Count 318 10^3/uL (130-400); Red Cell Dist. Width 14.0 % (11.5-14.5)
[2025-02-25 04:17] LABS: Blood Urea Nitrogen 31 mg/dl (9-20); Calcium 8.2 mg/dl (8.4-10.2); Carbon Dioxide 24 mmol/L (22-30); Chloride 105 mmol/L (98-107); Estimated Creatinine Clearance 87 ml/min; Glucose 118 mg/dl (70-99); Magnesium 2.6 mg/dl (1.6-2.3); Potassium 4.6 mmol/L (3.5-5.1); Sodium 136 mmol/L (135-145); eGFR > 60.00
[2025-02-25 06:00] VITALS: BMI 36.7
[2025-02-25] MEDS: TYLENOL 1000 MG PO (06:29)
--- NOTE | 2025-02-25 06:30 | PTCARENOTE ---
Patient A+A+Ox3. No neurological deficits noted. Patient ambulated to bathroom by self. Voided 450 ml yellow urine. Patient back in recliner chair. Assessment/Interventions as documented.
--- NOTE | 2025-02-25 07:31 | PTCARENOTE ---
Pt received from outgoing RN, pt aaox4, oob in a chair, NSR with 1st AVB, cordis, ambulating, RA, encourage IS, pain management, BP management plan for home.
[2025-02-25 07:50] VITALS: BP 145/103
[2025-02-25 08:18] LABS: Glucose - Point of Care 141 mg/dl (70-99)
[2025-02-25] MEDS: NOVOLOG FLEXPEN-LOW RESISTANCE SC (08:18)
[2025-02-25] MEDS: PROTONIX 40 MG PO (08:41)
[2025-02-25] MEDS: NEURONTIN 100 MG PO (08:41)
[2025-02-25] MEDS: LIDOCAINE 4% PATCH TOPICAL (08:42)
[2025-02-25] MEDS: PLAVIX 75 MG PO (08:42)
[2025-02-25] MEDS: SENOKOT-S 1 TABLET PO (08:42)
[2025-02-25] MEDS: COREG 12.5 MG PO (08:42)
[2025-02-25] MEDS: LOW STRENGTH ASPIRIN 81 MG PO (08:42)
[2025-02-25] MEDS: PACERONE 200 MG PO (08:42)
[2025-02-25] MEDS: ZESTRIL 10 MG PO (08:42)
[2025-02-25] MEDS: FARXIGA 10 MG PO (08:42)
[2025-02-25] MEDS: LASIX 20 MG IV (08:42)
[2025-02-25] MEDS: NORVASC 5 MG PO (08:42)
--- NOTE | 2025-02-25 10:14 | W.[place]-PDMP ---
[place]-PDMP
-
Checked the [place]- Prescription Drug Monitoring Program website, no red flags identified; safe to proceed with prescription.
--- NOTE | 2025-02-25 10:17 | W.DCSUMMARY ---
Discharge Summary
Discharge Data
Date of Admission: 02/15/25
Date of Discharge: 02/25/25
-
Pending Results: No
Hospital Course
Primary care physician:
Juan F Freeman
Outpatient coach mechanic:
Antonio Rojas
Inpatient consultants:
Procedures:
02/20/25 Robotic assisted MIDCAB (double vessel bypass CRUZ in situ or diagonal sequential to LAD) using Robotic assisted harvest of internal mammary artery with anterolateral mini thoracotomy for CABG and Rib plating with a 6 hole plate
02/21/25 1. left heart catheterization, coronary angiography, bypass graft angiography, IVUS ramus, PCI with MICHAEL to ramus
Admission Diagnosis:
-Severe 2v CAD (involving LAD and Lcx)
-NSTEMI (trop 0.076), probable Type 2 NSTEMI
-Strong family hx OR (father passed @ age 55 from OR)
-LVEF 60% per intraop ERIKA
-Hypertensive emergency
-Hyperlipidemia
-Class 2 obesity (BMI 37.1)
-Prediabetes (hgb A1C 6.1)
-Bradycardia
-S/P Orchiopexy as a child
Discharge Diagnoses:
-s/p Midcab x2
-Severe 2v CAD (involving LAD and Lcx)
-NSTEMI (trop 0.076), probable Type 2 NSTEMI
-Strong family hx OR (father passed @ age 55 from OR)
-LVEF 60% per intraop ERIKA
-Hypertensive emergency
-Hyperlipidemia
-Class 2 obesity (BMI 37.1)
-Prediabetes (hgb A1C 6.1)
-Bradycardia
-S/P Orchiopexy as a child
-Acute postop blood loss/Anemia (stable without blood transfusion)
-Acute postop hypoxemia, requiring 15L midflow oxygenation, resolved
-Acute postop atelectasis
-Acute postop MESFIN, resolving
-Acute post-op hypoxic respiratory failure, resolved
-Acute postop small b/l pleural effusions, b/l atelectasis (L>R)
HPI: Patient is a 54-year-old male with past medical history of hypertension and significant family history with his father dying of OR at age 55. Patient presented to the ED with complaints of chest pressure and shortness of breath with limited
exertion that improves with rest. Upon admission to the ED blood pressure was noted to be 221/116. He was therefore admitted for hypertensive emergency with mild troponin leak, peak of 0.076. Echo was normal, hyperdynamic with ejection fraction
of greater than 75%. He proceeded to the [facility] today where he was noted to have significant LAD and circumflex system disease. CT surgery was consulted for evaluation for CABG. 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
a sternotomy. Given his disease pattern involving the proximal LAD with extension of disease into the diagonal system and a focal 90% OM lesion, he was offered three-vessel revascularization using multi arterial grafts. Again he refused this and
so we discussed amongst our team regarding a hybrid approach in the form of a robotic assisted MIDCAB with CRUZ to LAD sequential to diagonal followed by PCI and stenting to the OM focal lesion.. The STS risk was discussed with the patient and the
shared decision making was to pursue a single-vessel possible two-vessel bypass using his mammary artery to his LAD and diagonal via a mini invasive approach. Plan will be to stent 24 hours after to the Circ system.
Hospital course: The patient was taken to the OR on 02/20/2025 and underwent coronary artery bypass grafting x 2 via MIDCAB with rib plating. He tolerated the procedure well, was extubated in the OR, and was transferred to the ICU in stable
condition. He did require brief treatment with BiPAP for PO2's in the 60s. He also required Cardizem drip for hypertension. By postop day 1 IV medications were discontinued the patient was then taken to the [facility] for a drug-eluting stent to
his ramus. The patient progressed along the pathway and had an uncomplicated postoperative course. Monitoring lines and chest tubes were removed in a reasonable timeframe. The patient maintained sinus rhythm and had no bouts of atrial
fibrillation. The patient did develop an MESFIN with creatinine peaking at 1.8 before trending down to normal. His baseline creatinine was 1.0. He was started on aspirin, Plavix, and beta-blockade. He required the addition of lisinopril for blood
pressure control. Farxiga was added for goal-directed medical therapy. Chest x-ray did show bilateral lower lobe atelectasis after chest tube removal. The patient was able to successfully be weaned from oxygen. By postop day 5 there is felt that
the patient was stable and medically ready for discharge. He was given explicit instruction on wound care, diet, and physical activity. He will follow-up with cardiac surgery in the office, as well as, cardiology as scheduled. He should see his
primary care physician in 2 to 4 weeks.
Home medication changes:
Discharge Plan
-
Patient Disposition: Home (Routine Discharge)
Discharge Diagnosis/Procedures: MIDCAB x 2 CRUZ-LAD & diag (02/20/25) and planned stent to Left Circumflex artery (02/21/25)
Diet: Low Cholesterol
Activity: No strenuous activity
Driving Restrictions: No driving for 24 hours
Bathing Restrictions: OK to Shower
Other Services: Cardiac Rehab
Specialty Instructions: Weigh Daily- Call MD for wt gain/loss 3 lbs overnight/5 lbs in 1 week
Activity Restrictions/Additional Instructions:
Please
ACTIVITY:
-No strenuous activity: no heavy lifting, pushing, pulling anything over 15 pounds for two weeks
-continue to use stairs as tolerated
DRIVING RESTRICTIONS:
-No driving for one week or if using narcotic pain medication
WOUND CARE:
-Shower daily. Use soap & water.
-No lotions, creams or powders on incision area.
DIET:
-continue a low fat/low cholesterol diet.
-IF you are diabetic, continue carb controlled diet.
CARDIAC REHAB:
-Please make appointment to start in 5-6 weeks with your local hospital program. (See Cardiac Rehabilitation Discharge Booklet).
SPECIALTY INSTRUCTIONS:
-Weigh yourself daily. Call your physician for any weight gain/loss of 3 lbs overnight or 5 lbs in one week.
-If you smoke, you are instructed to quit. The [place] smoking hotline phone number is [phone] call to make appointments for Phase II Cardiac Rehab:
see handouts in discharge instructions
Stand Alone Forms: DC Instructions- Cath/EP Lab
Referrals:
CT Transitional Care Nurse [Outside]
Referral Note: The Cardiothoracic Transitional Care Nurse will call you to set up a visit in 1-2 days.
Mita Yoder MD [Active, Pulmonary Medicine] - in one to two months
Referral Note: Strongly suspected sleep apnea, witnessed apnea
Sade River NP [Specified Professional Personl, Cardiology] - 04/11/25 11:00 am
Juan F Freeman CRNP [Family Provider, General]
Willy Rodriguez MD [Active, Cardiac Surgery] - 03/20/25 1:45 pm
Prescriptions:
New
carvedilol 12.5 mg Tablet
12.5 mg PO BID Qty: 60 2RF
rosuvastatin 40 mg Tablet
40 mg PO QPM Qty: 30 2RF
amlodipine 5 mg Tablet
5 mg PO DAILY Qty: 30 2RF
aspirin 81 mg Tablet,Chewable
81 mg PO DAILY Qty: 0 0RF
dapagliflozin propanediol [Farxiga] 10 mg tablet
10 mg PO DAILY Qty: 30 2RF
clopidogrel 75 mg Tablet
75 mg PO DAILY Qty: 30 2RF
lisinopril 10 mg Tablet
10 mg PO DAILY Qty: 30 2RF
gabapentin 100 mg Capsule
100 mg PO TID 7 Days Qty: 21 0RF
oxycodone 5 mg Tablet
5 mg PO Q4HPRN PRN (Reason: moderate pain) Qty: 20 0RF
acetaminophen 325 mg Tablet
650 mg PO Q4HPRN PRN (Reason: mild pain,headache,temp >101F ) Qty: 0 0RF
Continued
spironolactone 50 mg tablet
50 mg PO DAILY
Discontinued
amlodipine 5 mg tablet
5 mg PO DAILY
metoprolol succinate 25 mg tablet extended release 24 hr
25 mg PO DAILY
Discharge Orders:
Discharge Patient (As Directed); Ordered 02/25/25
Ordered By: Andreas Elkins
Care Plan Goals
Care Plan Goals:
Problem: Readiness for enhanced knowledge related to diagnosis and treatment plan
Goal: Understand your diagnosis and treatment plan needs, including medications if applicable.
Instructions: Know your diagnosis, underlying causes and treatment plan options, including medications if applicable. Consult with your health care team to learn about your diagnosis and treatment plan, including medications if applicable.
Discharge Date and Time
Discharge Date/Time: 02/25/25 12:24
Print Language: SYRIAC
[2025-02-25 11:08] VITALS: BP 116/64
[2025-02-25 11:14] VITALS: BP 114/82
--- NOTE | 2025-02-25 11:40 | PTCARENOTE ---
Pt reassessment unchanged from previous, vss, ra, dc instructions ready and pt waiting for family arrival to get discharge home this afternoon.
[2025-02-25 11:54] VITALS: BP 1147/82; BP 116/64; PULSE 63; O2SAT 93; O2SAT 94
--- NOTE | 2025-02-25 12:22 | PTCARENOTE ---
Pt discharged home, dc instructions and medications reviewed with pt and family member at the bedside, IV and tele pack dced, all pt belongings in the room sent home with pt. Pt was escorted by RN. Pt showered prior to being dced and had no
difficulty.
== END 2025-02-25 12:24 | disposition home or self-care (01) | DRG 231 ==
LOC: CVICU 17:59
PROVIDERS: Anesthesiology; Internal Medicine; Nurse Practitioner; Nurse Practitioner Adult Health; Nurse Practitioner Gerontology; Physician Assistant Medical; Student in an Organized Health Care Education/Training Program; ADMITTING PHYSICIAN Hospitalist; ATTENDING PHYSICIAN Thoracic Surgery (Cardiothoracic Vascular Surgery); CONSULT PHYSICIAN Internal Medicine Critical Care Medicine; EMERGENCY PHYSICIAN Student in an Organized Health Care Education/Training Program; FAMILY PHYSICIAN Nurse Practitioner Gerontology; OTHER PHYSICIAN Internal Medicine
PROC: B2111ZZ Fluoroscopy of Multiple Coronary Arteries using Low Osmolar Contrast (ICD-10-PCS; 2025-02-16)
PROC: 4A023N7 Measurement of Cardiac Sampling and Pressure, Left Heart, Percutaneous Approach (ICD-10-PCS; 2025-02-16)
PROC: B2151ZZ Fluoroscopy of Left Heart using Low Osmolar Contrast (ICD-10-PCS; 2025-02-16)
PROC: 8E0W0CZ Robotic Assisted Procedure of Trunk Region, Open Approach (ICD-10-PCS; 2025-02-20)
PROC: B24BZZ4 Ultrasonography of Heart with Aorta, Transesophageal (ICD-10-PCS; 2025-02-20)
PROC: 02110Z9 Bypass Coronary Artery, Two Arteries from Left Internal Mammary, Open Approach (ICD-10-PCS; 2025-02-20)
PROC: B240ZZ3 Ultrasonography of Single Coronary Artery, Intravascular (ICD-10-PCS; 2025-02-21)
PROC: B2181ZZ Fluoroscopy of Left Internal Mammary Bypass Graft using Low Osmolar Contrast (ICD-10-PCS; 2025-02-21)
PROC: 027034Z Dilation of Coronary Artery, One Artery with Drug-eluting Intraluminal Device, Percutaneous Approach (ICD-10-PCS; 2025-02-21)
DX: I16.1 Hypertensive emergency (principal); I21.A1 Myocardial infarction type 2; J95.821 Acute postprocedural respiratory failure; I50.33 Acute on chronic diastolic (congestive) heart failure; D62 Acute posthemorrhagic anemia; J98.11 Atelectasis; N17.9 Acute kidney failure, unspecified; I25.10 Atherosclerotic heart disease of native coronary artery without angina pectoris; I11.0 Hypertensive heart disease with heart failure; E78.5 Hyperlipidemia, unspecified; E66.812 Obesity, class 2; R00.1 Bradycardia, unspecified; N99.0 Postprocedural (acute) (chronic) kidney failure; Y83.2 Surgical operation with anastomosis, bypass or graft as the cause of abnormal reaction of the patient, or of later complication, without mention of misadventure at the time of the procedure; R73.03 Prediabetes; Z68.36 Body mass index [BMI] 36.0-36.9, adult; Z79.84 Long term (current) use of oral hypoglycemic drugs; Z79.899 Other long term (current) drug therapy; Z82.49 Family history of ischemic heart disease and other diseases of the circulatory system
CPT/HCPCS: 71045; 71046; 71275; 74175; 80048; 80053; 80061; 81003; 81015; 82330; 82565; 82805; 82947; 82962; 83036; 83695; 83721; 83735; 83880; 84132; 84302; 84484; 84520; 85014; 85018; 85025; 85027; 85049; 85347; 85610; 85730; 86850; 86900; 86901; 86920; 92978; 93005; 93306; 93312; 93320; 93325; 93458; 93459; 94660; 94669; 96374; 96375; 96376; 99152; 99153; 99291; C1725; C1753; C1760; C1769; C1874; C1894; C9600; J2916; Q9957; Q9967